=== PATIENT | male | born 1945 ===

== ENCOUNTER 2017-06-01 10:51 | Inpatient (IN) | payer OTHER ==
[~2017-06-01] VITALS: Ht 177.8 cm; Wt 117.9 kg
[~2017-06-01 10:51] MED LIST: AMLO10 PO; AMLO5; AMLO5 PO; ASPI81CH PO; ASPI81EC PO; ATOR40TA PO; B Complex #11 EACH PO; B Complex-Foli1 EACH; BLADDER MED; CLOP75 PO; CYAN500 PO; CYCL10 PO; DIAZ10 PO; DOCU100 PO; DOXA2 PO; GABA300; GABA300 PO; GLIP5 PO; GLYB5 PO; Hydrochloroth12.5 MG PO; INS70/30PN SC; LEVSOD150 PO; LOSA50 PO; LOVA40 PO; MAGOXI400; META800 PO; METF500 PO; METF850 PO; METFORMIN PO; METO100ER PO; METO25ER PO; METO50 PO; NAPR500 PO; NAPR500EC PO; Norco 5-325 Ta1 EACH PO; OMEP20ER PO; OXYACE5T PO; OXYACE7.5T PO; OXYB5 PO; OXYC15ER PO; Omeprazole20 M1 PO; PIOG15 PO; PIOG30 PO; POTA8; Percocet 7.5-31 EACH; Percocet 7.5-31 EACH PO; TAMS.4ER; TAMS.4ER PO; Vesicare10 MG; Vesicare10 MG PO
[2017-06-01 11:19] LABS: BASOPHILS ABSOLUTE AUTO 0.02 K/mm3 (0.00-0.23); BASOPHILS PERCENT AUTO 0 % (0-2); EOSINOPHILS PERCENT AUTO 7 % (0-6); Hematocrit 42.7 % (37.0-53.0); Hemoglobin 14.5 g/dL (13.5-17.5); IMMATURE GRAN ABSOLUTE AUTO 0.03 K/mm3 (0.00-0.10); IMMATURE GRAN PERCENT AUTO 0 % (0-1); LYMPHOCYTES ABSOLUTE AUTO 1.89 K/mm3 (0.84-5.20); LYMPHOCYTES PERCENT AUTO 21 % (21-46); MONOCYTES ABSOLUTE AUTO 0.59 K/mm3 (0.16-1.47); MONOCYTES PERCENT AUTO 7 % (4-13); Mean Corpuscular HGB 29.2 pg (26.0-34.0); Mean Corpuscular Volume 86 fL (80-100); Mean Platelet Volume 9.6 fL (9.1-12.4); NEUTROPHILS ABSOLUTE AUTO 5.87 K/mm3 (1.96-9.15); NEUTROPHILS PERCENT AUTO 65 % (41-73); Platelet Count 241 K/mm3 (150-400); RDW Coefficient Variation 13.1 % (11.7-14.2); Red Blood Cell Count 4.97 M/mm3 (4.30-5.90)
[2017-06-01] MEDS ORDERED: METF500C PO (11:22)
[2017-06-01 11:42] LABS: Albumin, Blood 2.5 g/dL (3.4-5.0); Albumin/Globulin Ratio 0.6 (0.8-1.8); Bilirubin, Total 0.4 mg/dL (0.1-1.0); Bun/Creatinine Ratio 22.5 (12.0-20.0); Calcium, Blood 9.1 mg/dL (8.5-10.1); Creatinine, Blood 1.42 mg/dL (0.60-1.20); Globulin, Blood 4.5 g/dL (2.2-4.0); Potassium, Blood 4.4 mmol/L (3.5-5.5)
[2017-06-01 11:45] LABS: International Normalized Ratio 0.97; Prothrombin Time Results 10.1 Sec (9.7-11.5)
[2017-06-01] MEDS ORDERED: GLIP5 PO (16:00)
[2017-06-01] MEDS ORDERED: METF850 PO (16:01)
[2017-06-01] MEDS ORDERED: GABA300 PO (16:02)
[2017-06-01] MEDS ORDERED: SOLI5 PO (16:03)
[2017-06-01] MEDS ORDERED: TAMS.4ER PO (16:03)
[2017-06-01] MEDS ORDERED: ASPI81CH PO (16:04)
[2017-06-01] MEDS ORDERED: B-COMPLEX WITH1 EAC1 PO (16:05)
[2017-06-01] MEDS ORDERED: MAGOXI400 PO (16:05)
[2017-06-01] MEDS ORDERED: Percocet 7.5-31 EACH PO (16:06)
[2017-06-02 09:07] LABS: Anion Gap 8 mmol/L (6-16); Blood Urea Nitrogen 30 mg/dL (8-24); Bun/Creatinine Ratio 26.8 (12.0-20.0); CO2, Blood 26 mmol/L (21-32); Chloride, Blood 104 mmol/L (98-108); Creatinine, Blood 1.12 mg/dL (0.60-1.20); Glomerular Filtration Rate >60 (60-); Glucose, Blood 212 mg/dL (70-99); Potassium, Blood 4.1 mmol/L (3.5-5.5); Sodium, Blood 138 mmol/L (136-145)
[2017-06-03 05:44] LABS: CHOL/HDL RATIO 3.7; Cholesterol 142 mg/dL (50-200); HDL Cholesterol 38 mg/dL (>39); LDL/HDL RATIO 1.5; Low Density Lipoprotein Chol 56 mg/dL (0-110); Triglycerides 241 mg/dL (30-160); Very Low Density Lipoprot Chol 48 mg/dL (6-32)
[2017-06-07 06:01] LABS: BASOPHILS ABSOLUTE AUTO 0.02 K/mm3 (0.00-0.23); BASOPHILS PERCENT AUTO 0 % (0-2); EOSINOPHILS ABSOLUTE AUTO 0.91 K/mm3 (0.00-0.68); EOSINOPHILS PERCENT AUTO 10 % (0-6); Hemoglobin 13.9 g/dL (13.5-17.5); IMMATURE GRAN ABSOLUTE AUTO 0.04 K/mm3 (0.00-0.10); IMMATURE GRAN PERCENT AUTO 0 % (0-1); LYMPHOCYTES PERCENT AUTO 20 % (21-46); MONOCYTES ABSOLUTE AUTO 0.81 K/mm3 (0.16-1.47); MONOCYTES PERCENT AUTO 9 % (4-13); Mean Corpuscular HGB 28.5 pg (26.0-34.0); Mean Corpuscular HGB Conc 32.3 g/dL (31.5-36.5); Mean Corpuscular Volume 88 fL (80-100); Mean Platelet Volume 9.9 fL (9.1-12.4); NEUTROPHILS ABSOLUTE AUTO 5.49 K/mm3 (1.96-9.15); NEUTROPHILS PERCENT AUTO 61 % (41-73); Platelet Count 213 K/mm3 (150-400); RDW Coefficient Variation 13.9 % (11.7-14.2); RDW Standard Deviation 44.4 fL (35.1-46.3); Red Blood Cell Count 4.88 M/mm3 (4.30-5.90); White Blood Cell Count 9.07 K/mm3 (4.00-11.30)
[2017-06-07 06:27] LABS: Bun/Creatinine Ratio 22.8 (12.0-20.0); Creatinine, Blood 1.27 mg/dL (0.60-1.20); Potassium, Blood 4.5 mmol/L (3.5-5.5)
[2017-06-07 14:11] LABS: Influenza A Negative (NEGATIVE); Influenza B Negative (NEGATIVE)
[2017-06-10 12:27] LABS: BASOPHILS ABSOLUTE AUTO 0.02 K/mm3 (0.00-0.23); BASOPHILS PERCENT AUTO 0 % (0-2); EOSINOPHILS ABSOLUTE AUTO 0.73 K/mm3 (0.00-0.68); EOSINOPHILS PERCENT AUTO 9 % (0-6); Hematocrit 45.7 % (37.0-53.0); Hemoglobin 14.7 g/dL (13.5-17.5); IMMATURE GRAN ABSOLUTE AUTO 0.02 K/mm3 (0.00-0.10); IMMATURE GRAN PERCENT AUTO 0 % (0-1); LYMPHOCYTES ABSOLUTE AUTO 1.46 K/mm3 (0.84-5.20); LYMPHOCYTES PERCENT AUTO 17 % (21-46); MONOCYTES ABSOLUTE AUTO 0.58 K/mm3 (0.16-1.47); MONOCYTES PERCENT AUTO 7 % (4-13); Mean Corpuscular HGB 28.7 pg (26.0-34.0); Mean Corpuscular HGB Conc 32.2 g/dL (31.5-36.5); Mean Corpuscular Volume 89 fL (80-100); Mean Platelet Volume 10.2 fL (9.1-12.4); NEUTROPHILS ABSOLUTE AUTO 5.78 K/mm3 (1.96-9.15); NEUTROPHILS PERCENT AUTO 67 % (41-73); Platelet Count 234 K/mm3 (150-400); RDW Coefficient Variation 13.7 % (11.7-14.2); RDW Standard Deviation 44.6 fL (35.1-46.3); Red Blood Cell Count 5.13 M/mm3 (4.30-5.90); White Blood Cell Count 8.59 K/mm3 (4.00-11.30)
[2017-06-10 12:47] LABS: Bun/Creatinine Ratio 20.6 (12.0-20.0); Calcium, Blood 9.1 mg/dL (8.5-10.1); Creatinine, Blood 1.26 mg/dL (0.60-1.20); Potassium, Blood 5.1 mmol/L (3.5-5.5)
[2017-06-11] MEDS ORDERED: BUME1 PO (18:51)
[2017-06-11] MEDS ORDERED: ALBU90OI6 INH (18:51)
[2017-06-11] MEDS ORDERED: DOCU100 PO (18:52)
[2017-06-11] MEDS ORDERED: LEVEMIR FL100 UNIT/1 SC (18:59)
[2017-06-11] MEDS ORDERED: INSU100I6 SC (19:03)
[2017-06-11] MEDS ORDERED: GAVILAX17 GM PO (19:04)
[2017-06-11] MEDS ORDERED: Milk Of Ma400 MG/5 M PO (19:05)
[2017-06-11] MEDS ORDERED: TROSPIUM CHLORI20 MG PO (19:06)
[2017-06-11] MEDS ORDERED: Aspercreme 1035.4 GM TOP (19:07)
[2018-03-21] MEDS ORDERED: FURO40 PO (08:41)
[2018-03-21] MEDS ORDERED: METF500C PO (08:41)
[2018-03-21] MEDS ORDERED: CLOP75 PO (08:41)
[2018-03-21] MEDS ORDERED: METO25 (08:42)
[2018-03-21] MEDS ORDERED: POTA8 PO (08:42)
[2018-03-21] MEDS ORDERED: NYST237S MT (10:20)
[2018-03-21] MEDS ORDERED: Veetids 500500 MG PO (10:20)
== END 2017-06-11 17:06 | DRG 64 ==
LOC: ER 10:51 → MEDS 10:52 → ENPENDDIS 06-11 14:32 → MEDS 06-11 17:06
PROVIDERS: Emergency Medicine; Internal Medicine
PROC: 3E0234Z Introduction of Serum, Toxoid and Vaccine into Muscle, Percutaneous Approach (ICD-10-PCS; principal; 2017-06-01)
DX: I63.9 Cerebral infarction, unspecified (principal); J18.9 Pneumonia, unspecified organism; E11.9 Type 2 diabetes mellitus without complications; I35.0 Nonrheumatic aortic (valve) stenosis; G81.94 Hemiplegia, unspecified affecting left nondominant side; I10 Essential (primary) hypertension; N40.0 Benign prostatic hyperplasia without lower urinary tract symptoms; Z23 Encounter for immunization; R29.701 NIHSS score 1; Z99.3 Dependence on wheelchair; E78.5 Hyperlipidemia, unspecified; K21.9 Gastro-esophageal reflux disease without esophagitis; I25.10 Atherosclerotic heart disease of native coronary artery without angina pectoris; Z95.1 Presence of aortocoronary bypass graft; K59.00 Constipation, unspecified; E66.9 Obesity, unspecified; Z68.38 Body mass index [BMI] 38.0-38.9, adult
CPT/HCPCS: 36415; 70450; 70496; 70498; 71046; 80048; 80053; 80061; 82947; 83036; 85025; 85610; 87804; 93005; 93010; 94640; 94760; 97110; 97112; 97163; 97166; 97530; 99285; G8978; G8979; G8987; G8988; J0360; J1650; J1815; J1956; Q9967

== ENCOUNTER → 2017-10-08 | Outpatient (CLI) | payer OTHER ==
[~2017-10-08] MED LIST changes: +ALBU90OI6 INH; +Aspercreme 1035.4 GM TOP; +B-COMPLEX WITH1 EAC1 PO; +BUME1 PO; +GAVILAX17 GM PO; +INSU100I6 SC; +LEVEMIR FL100 UNIT/1 SC; +MAGOXI400 PO; +METF500C PO; +Milk Of Ma400 MG/5 M PO; +SOLI5 PO; +TROSPIUM CHLORI20 MG PO
[2017-10-08 12:38] LABS: Protein, Urine Quantitative 240.9 mg/dL (0.0-11.9)
== END ==
LOC: LAB FUT 09-25 10:30 → LAB SHORT 10:45 → OLS 10:45
PROVIDERS: Internal Medicine Nephrology
DX: N18.2 Chronic kidney disease, stage 2 (mild) (principal); D63.1 Anemia in chronic kidney disease
CPT/HCPCS: 81050; 82043; 84156

== ENCOUNTER 2017-10-09 11:54 | Day surgery (SDC) | payer OTHER | END 2017-10-09 22:41 | disposition home or self-care (01) | LOC: WOUND 11:54 | DX: Z48.00 Encounter for change or removal of nonsurgical wound dressing (principal); E11.622 Type 2 diabetes mellitus with other skin ulcer; L97.829 Non-pressure chronic ulcer of other part of left lower leg with unspecified severity; S51.802A Unspecified open wound of left forearm, initial encounter; I20.9 Angina pectoris, unspecified; E11.40 Type 2 diabetes mellitus with diabetic neuropathy, unspecified; I69.959 Hemiplegia and hemiparesis following unspecified cerebrovascular disease affecting unspecified side; I25.10 Atherosclerotic heart disease of native coronary artery without angina pectoris; R60.9 Edema, unspecified; I10 Essential (primary) hypertension; J44.9 Chronic obstructive pulmonary disease, unspecified; I87.2 Venous insufficiency (chronic) (peripheral) | CPT/HCPCS: G0463 ==

== ENCOUNTER 2017-10-11 08:00 | Day surgery (SDC) | payer OTHER | END 2017-10-11 13:55 | disposition home or self-care (01) | LOC: WOUND 08:00 | PROC: 2W1RX6Z Compression of Left Lower Leg using Pressure Dressing (ICD-10-PCS; principal; 2017-10-11) | DX: S81.802A Unspecified open wound, left lower leg, initial encounter (principal); I20.9 Angina pectoris, unspecified; R06.02 Shortness of breath; E11.40 Type 2 diabetes mellitus with diabetic neuropathy, unspecified; I69.959 Hemiplegia and hemiparesis following unspecified cerebrovascular disease affecting unspecified side; I25.10 Atherosclerotic heart disease of native coronary artery without angina pectoris; R60.9 Edema, unspecified; I10 Essential (primary) hypertension; J44.9 Chronic obstructive pulmonary disease, unspecified; Z79.4 Long term (current) use of insulin; Z79.02 Long term (current) use of antithrombotics/antiplatelets; E78.5 Hyperlipidemia, unspecified ==

== ENCOUNTER 2017-10-15 08:00 | Day surgery (SDC) | payer OTHER | END 2017-10-15 11:22 | disposition home or self-care (01) | LOC: WOUND 08:00 | PROC: 2W1RX6Z Compression of Left Lower Leg using Pressure Dressing (ICD-10-PCS; principal; 2017-10-15) | DX: S81.802A Unspecified open wound, left lower leg, initial encounter (principal); R06.02 Shortness of breath; E11.40 Type 2 diabetes mellitus with diabetic neuropathy, unspecified; I69.959 Hemiplegia and hemiparesis following unspecified cerebrovascular disease affecting unspecified side; R60.9 Edema, unspecified; I10 Essential (primary) hypertension; J44.9 Chronic obstructive pulmonary disease, unspecified; I87.2 Venous insufficiency (chronic) (peripheral); Z79.4 Long term (current) use of insulin; Z79.02 Long term (current) use of antithrombotics/antiplatelets; G47.30 Sleep apnea, unspecified; E66.01 Morbid (severe) obesity due to excess calories ==

== ENCOUNTER 2017-10-18 09:15 | Day surgery (SDC) | payer OTHER ==
[2017-10-18] MEDS ORDERED: B Complex #11 EACH PO (10:46)
[2017-10-18] MEDS ORDERED: INSULANPEN SC (10:49)
[2017-10-18] MEDS ORDERED: GABA300 PO (11:29)
== END 2017-10-18 10:37 | disposition home or self-care (01) ==
LOC: WOUND 09:15
DX: Z48.00 Encounter for change or removal of nonsurgical wound dressing (principal); S81.802A Unspecified open wound, left lower leg, initial encounter; I20.9 Angina pectoris, unspecified; E11.40 Type 2 diabetes mellitus with diabetic neuropathy, unspecified; I69.959 Hemiplegia and hemiparesis following unspecified cerebrovascular disease affecting unspecified side; I25.10 Atherosclerotic heart disease of native coronary artery without angina pectoris
CPT/HCPCS: G0463

== ENCOUNTER 2017-10-18 10:52 | Day surgery (SDC) | payer OTHER ==
[~2017-10-18] VITALS: Ht 177.8 cm; Wt 127.0 kg
[~2017-10-18 10:52] MED LIST changes: +INSULANPEN SC
[2017-10-18] MEDS ORDERED: GABA300 PO (11:29)
== END 2017-10-18 23:04 | disposition home or self-care (01) ==
LOC: MHTC 10:52
DX: I35.0 Nonrheumatic aortic (valve) stenosis (principal)
CPT/HCPCS: 93312; 93325; 99152; J2250; J3010; J7040

== ENCOUNTER 2018-11-29 13:43 | Observation (INO) | payer OTHER ==
[~2018-11-29] VITALS: Ht 177.8 cm; Wt 133.2 kg
[~2018-11-29 13:43] MED LIST changes: +FURO40 PO; +METO25; +NYST237S MT; +POTA8 PO; +Veetids 500500 MG PO
[2018-11-29 14:24] LABS: BASOPHILS ABSOLUTE AUTO 0.04 K/mm3 (0.00-0.23); BASOPHILS PERCENT AUTO 1 % (0-2); EOSINOPHILS ABSOLUTE AUTO 0.91 K/mm3 (0.00-0.68); EOSINOPHILS PERCENT AUTO 11 % (0-6); Hematocrit 41.4 % (37.0-53.0); Hemoglobin 13.3 g/dL (13.5-17.5); IMMATURE GRAN ABSOLUTE AUTO 0.07 K/mm3 (0.00-0.10); IMMATURE GRAN PERCENT AUTO 1 % (0-1); LYMPHOCYTES ABSOLUTE AUTO 0.94 K/mm3 (0.84-5.20); LYMPHOCYTES PERCENT AUTO 11 % (21-46); MONOCYTES ABSOLUTE AUTO 1.01 K/mm3 (0.16-1.47); MONOCYTES PERCENT AUTO 12 % (4-13); Mean Corpuscular HGB 28.3 pg (26.0-34.0); Mean Corpuscular HGB Conc 32.1 g/dL (31.5-36.5); Mean Corpuscular Volume 88 fL (80-100); Mean Platelet Volume 10.3 fL (9.1-12.4); NEUTROPHILS ABSOLUTE AUTO 5.66 K/mm3 (1.96-9.15); NEUTROPHILS PERCENT AUTO 66 % (41-73); Platelet Count 208 K/mm3 (150-400); RDW Coefficient Variation 13.7 % (11.7-14.2); RDW Standard Deviation 44.5 fL (35.1-46.3); White Blood Cell Count 8.63 K/mm3 (4.00-11.30)
[2018-11-29 14:46] LABS: International Normalized Ratio 0.97; Prothrombin Time Results 10.3 Sec (9.7-11.5)
[2018-11-29 14:48] LABS: Albumin, Blood 2.9 g/dL (3.4-5.0); Albumin/Globulin Ratio 0.8 (0.8-1.8); Bilirubin, Total 0.6 mg/dL (0.1-1.0); Bun/Creatinine Ratio 16.6 (12.0-20.0); Creatinine, Blood 1.51 mg/dL (0.60-1.20); Globulin, Blood 3.6 g/dL (2.2-4.0); Total Protein, Blood 6.5 g/dL (6.4-8.2)
[2018-11-29] MEDS ORDERED: PANT20 PO (16:01)
[2018-11-29] MEDS ORDERED: ATOR80 PO (16:03)
--- NOTE | 2018-11-29 18:07 | NUR ---
PT ADMITTED/SHIFT SUMMARY PT ADMITTED AT 1745. PT IN STABLE CONDITION WITH VSS. PT & ORIENTED TO ROOM. CALL LIGHT IN REACH. PT EATING DINNER AT THIS TIME. WILL CONTINUE TO MONITOR UNTIL TURNOVER IS COMPLETE.
--- NOTE | 2018-11-30 05:34 | NUR ---
SHIFT SUMMARY PT SLEPT WELL DURING THE NIGHT, OFFERS NO C/O'S THIS AM. NO ACUTE EVENTS NOTED OVER NIGHT. LEFT SIDE REMAINS WEAKER THAN THE RIGHT, PT STILL WITH SLURRED SPEECH. ALTHOUGH HE HAS NO DENTURES IN, FAMILY BRINGING IN TODAY. NEUROS REMAIN UNCHANGED, WILL CONTINUE TO MONITOR.
[2018-11-30 05:35] LABS: BASOPHILS ABSOLUTE AUTO 0.03 K/mm3 (0.00-0.23); BASOPHILS PERCENT AUTO 0 % (0-2); EOSINOPHILS ABSOLUTE AUTO 0.79 K/mm3 (0.00-0.68); EOSINOPHILS PERCENT AUTO 12 % (0-6); Hematocrit 38.8 % (37.0-53.0); Hemoglobin 12.4 g/dL (13.5-17.5); IMMATURE GRAN ABSOLUTE AUTO 0.05 K/mm3 (0.00-0.10); IMMATURE GRAN PERCENT AUTO 1 % (0-1); LYMPHOCYTES ABSOLUTE AUTO 0.87 K/mm3 (0.84-5.20); LYMPHOCYTES PERCENT AUTO 13 % (21-46); MONOCYTES ABSOLUTE AUTO 0.95 K/mm3 (0.16-1.47); MONOCYTES PERCENT AUTO 14 % (4-13); Mean Corpuscular HGB 27.8 pg (26.0-34.0); Mean Corpuscular Volume 87 fL (80-100); Mean Platelet Volume 10.4 fL (9.1-12.4); NEUTROPHILS PERCENT AUTO 61 % (41-73); Platelet Count 183 K/mm3 (150-400); RDW Coefficient Variation 13.8 % (11.7-14.2); RDW Standard Deviation 43.9 fL (35.1-46.3); Red Blood Cell Count 4.46 M/mm3 (4.30-5.90); White Blood Cell Count 6.89 K/mm3 (4.00-11.30)
[2018-11-30 06:06] LABS: Bun/Creatinine Ratio 17.1 (12.0-20.0); Calcium, Blood 8.8 mg/dL (8.5-10.1); Creatinine, Blood 1.52 mg/dL (0.60-1.20); Potassium, Blood 4.2 mmol/L (3.5-5.5)
--- NOTE | 2018-12-01 05:09 | NUR ---
SHIFT SUMMARY PT SLEPT WELL DURING THE NIGHT, INCONTINENT OF A LARGE AMOUNT OF URINE. PT WANTING TO SIT UP IN CHAIR THIS AM, BUT IS TOO WEAK TO EVEN HOLD SELF UP IN A SITTING POSITION. PT REPOSITIONED IN BED. TYLENOL GIVEN FOR A H/A THIS AM. B/P ALSO ELEVATED THIS AM. WILL CONTINUE TO MONITOR.
[2018-12-01 05:11] LABS: BASOPHILS ABSOLUTE AUTO 0.03 K/mm3 (0.00-0.23); BASOPHILS PERCENT AUTO 0 % (0-2); EOSINOPHILS ABSOLUTE AUTO 0.56 K/mm3 (0.00-0.68); EOSINOPHILS PERCENT AUTO 8 % (0-6); Hematocrit 41.2 % (37.0-53.0); Hemoglobin 13.2 g/dL (13.5-17.5); IMMATURE GRAN ABSOLUTE AUTO 0.07 K/mm3 (0.00-0.10); IMMATURE GRAN PERCENT AUTO 1 % (0-1); LYMPHOCYTES ABSOLUTE AUTO 0.85 K/mm3 (0.84-5.20); LYMPHOCYTES PERCENT AUTO 12 % (21-46); MONOCYTES ABSOLUTE AUTO 0.92 K/mm3 (0.16-1.47); MONOCYTES PERCENT AUTO 13 % (4-13); Mean Corpuscular HGB 28.3 pg (26.0-34.0); Mean Corpuscular Volume 88 fL (80-100); Mean Platelet Volume 10.1 fL (9.1-12.4); NEUTROPHILS ABSOLUTE AUTO 4.58 K/mm3 (1.96-9.15); NEUTROPHILS PERCENT AUTO 65 % (41-73); Platelet Count 179 K/mm3 (150-400); RDW Coefficient Variation 13.6 % (11.7-14.2); RDW Standard Deviation 44.2 fL (35.1-46.3); Red Blood Cell Count 4.66 M/mm3 (4.30-5.90); White Blood Cell Count 7.01 K/mm3 (4.00-11.30)
[2018-12-01 05:41] LABS: Albumin, Blood 2.7 g/dL (3.4-5.0); Anion Gap 6 mmol/L (6-16); Blood Urea Nitrogen 24 mg/dL (8-24); Bun/Creatinine Ratio 16.3 (12.0-20.0); CO2, Blood 26 mmol/L (21-32); Chloride, Blood 106 mmol/L (98-108); Creatinine, Blood 1.47 mg/dL (0.60-1.20); Glomerular Filtration Rate 50 (60-); Glucose, Blood 210 mg/dL (70-99); Phosphorus, Blood 3.9 mg/dL (2.5-4.9); Potassium, Blood 4.4 mmol/L (3.5-5.5); Sodium, Blood 138 mmol/L (136-145)
--- NOTE | 2018-12-01 18:27 | NUR ---
PATIENT NOT FEELING WELL THIS SHIFT. MUCH WEAKER WITH TRANSFERS, HAD TO USE A LIFT AT ONE POINT TO GET BACK TO BED. PATIENT REPORTING SOB AND PRODUCTIVE COUGH. CHEST X-RAY ORDERED AND WAS NEGATIVE. RT TX ORDERED AND SOB AND WHEEZING IMPROVED. 2LO2 TO MAINTAIN SATS. 20G IV TO R AC WNL AND SL. PATIENT SLOW TO RESPOND AND HAS SOME INTERMITTENT CONFUSION. L SIDE REMAINS WEAK. ACHS BLOOD SUGARS, COVERAGE PER SS. CONT/INCONT, REQUIRES ASSIST WITH URINAL. OXYCODNE AND TYLENOL ORDERED FOR PAIN. PATIENT TOLERATING ADA DIET, REPORTS DECREASED APPETITE TODAY.
--- NOTE | 2018-12-02 05:36 | NUR ---
SHIFT SUMMARY PT UP TO BSC WITH HARD ASSSIST OF 2, HAD SMALL BM. SLEPT FAIR. MEDICATED X1 FOR BACK PAIN. PT LEFT SIDE SEEMS TO BE WEAKER. PT CHANGED X1 OF INCONTINENT URINE AND ANOTHER SMALL STOOL. WILL CONTINUE TO MONITOR.
--- NOTE | 2018-12-02 17:43 | NUR ---
SUMMARY: NO ACUTE CHANGE TODAY. PT IS A/O, VSS, NO NEW WEAKNESS. CONTINUES TO REPORT L SIDE WEAK. PT WORKED WITH PT TODAY, SAT IN CHAIR IN THE AFTERNOON. CONTINUES TO NEED 2L NC, PRODUCTIVE COUGH. SOME SOB ON EXERTION, ENCOURAGING COUGH AND DEEP BREATHE. PLAN IS TO DC TO A SNF BED WHEN AVALIBLE. NO SAFETY CONCERNS AT THIS TIME.
--- NOTE | 2018-12-03 05:06 | NUR ---
SHIFT SUMMARY PT SLEPT WELL DURING THE NIGHT, OFFERS NO C/O'S. NO ACUTE EVENTS OR CHANGES NOTED.
[2018-12-03] MEDS ORDERED: DOXY100 PO (11:23)
[2018-12-03] MEDS ORDERED: PRED20 PO (11:24)
[2018-12-03] MEDS ORDERED: FLUTICASONE-SA1 EAC2 INH (11:24)
[2018-12-03] MEDS ORDERED: METO25ER PO (11:24)
--- NOTE | 2018-12-03 13:12 | NUR ---
PT. TRANSFERRED TO [facility] VIA [facility] TRANSPORT AND WC WITH OXYGEN, TRIED TO CALL REPORT BUT THE NURSE DID NOT COME TO THE PHONE, TEXTILE BROKER TOOK MY NAME AND PHONE NUMBER TO CALL ME FOR REPORT. I WAS ON HOLD FOR 10-15 MINUTES.
== END 2018-12-03 13:13 ==
LOC: ER 13:43 → ERHOLD 16:03 → ER 16:03 → ERHOLD 16:03 → MEDS 16:03 → ERHOLD 17:51 → MEDS 17:51
PROVIDERS: Emergency Medicine; Internal Medicine; Nurse Practitioner Acute Care; ADMIT Internal Medicine
DX: I63.9 Cerebral infarction, unspecified (principal); R53.1 Weakness; J96.01 Acute respiratory failure with hypoxia; J20.9 Acute bronchitis, unspecified; I12.9 Hypertensive chronic kidney disease with stage 1 through stage 4 chronic kidney disease, or unspecified chronic kidney disease; E11.22 Type 2 diabetes mellitus with diabetic chronic kidney disease; N18.3 Chronic kidney disease, stage 3 (moderate); M17.0 Bilateral primary osteoarthritis of knee; I25.10 Atherosclerotic heart disease of native coronary artery without angina pectoris; K21.0 Gastro-esophageal reflux disease with esophagitis; N40.0 Benign prostatic hyperplasia without lower urinary tract symptoms; E78.5 Hyperlipidemia, unspecified; G47.33 Obstructive sleep apnea (adult) (pediatric); E66.01 Morbid (severe) obesity due to excess calories; Z86.73 Personal history of transient ischemic attack (TIA), and cerebral infarction without residual deficits; Z79.899 Other long term (current) drug therapy; Z79.82 Long term (current) use of aspirin; Z79.01 Long term (current) use of anticoagulants; Z79.4 Long term (current) use of insulin; Z88.8 Allergy status to other drugs, medicaments and biological substances; Z87.891 Personal history of nicotine dependence
CPT/HCPCS: 36415; 70450; 70496; 70498; 71045; 80048; 80053; 80069; 82947; 83880; 85025; 85610; 92610; 93005; 93010; 93306; 93971; 94640; 94760; 96372; 97110; 97162; 97166; 97530; 97535; 99285-25; A9270; A9270-GY; G0378; J1650; J7030; J7512; Q9967

== ENCOUNTER → 2019-06-11 | Outpatient (CLI) | payer OTHER ==
[~2019-06-11] MED LIST changes: +ATOR80 PO; +DOXY100 PO; +FLUTICASONE-SA1 EAC2 INH; +PANT20 PO; +PRED20 PO
[2019-06-16 13:07] LABS: M-SPIKE, % Not Observed % (Not Observed); PROTEIN,TOTAL,URINE 687.3 mg/dL (Not Estab.)
== END | disposition home or self-care (01) ==
LOC: LAB 07:00 → LAB SHORT 07:00 → LAB FUT 06-05 11:25
PROVIDERS: Internal Medicine
DX: Z00.01 Encounter for general adult medical examination with abnormal findings (principal)
CPT/HCPCS: 81050; 84156; 84166

== ENCOUNTER 2020-04-29 10:13 | Day surgery (SDC) | payer OTHER ==
[~2020-04-29] VITALS: Ht 177.8 cm; Wt 135.5 kg
[~2020-04-29 10:13] MED LIST changes: +B-121000 MC7; +BASAGLAR K100 UNIT/1 SC; +CARV3.125; +FLUT1DIS5; +MAGNESIUM OXID500 MG; +METF500; +PANT20; +TELM80; +Toviaz4 MG; +VITAMIN D31000 UNI1
--- NOTE | 2020-04-29 16:39 | NUR ---
FOLLOWED PT BACK TO RECOVERY ROOM FROM PROCEDURE. R GROIN SITE STABLE
--- NOTE | 2020-04-29 18:09 | NUR ---
BP ELEVATED DURING PROCEDURE AND GIVEN A TOTAL OF 20 MG IV LABETOLOL. BP STILL ELEVATED HERE IN RECOVERY ROOM. DR NOTIFIED AND ORDERS RECIEVED TO GIVE HOME DOSE OF PO MEDICATION, GIVEN.
--- NOTE | 2020-04-29 19:21 | NUR ---
PT UP AND BACK FROM BATHROOM. DRESSED WITH ASSISTANCE. GROIN SITE STABLE. SALINE LOCK REMOVED WITH CATHETER INTACT. DISCHARGE INSTRUCTIONS REVIEWED WITH PT, VERBALIZES UNDERSTANDING. PT STATES WILL REVIEW INSTRUCTIONS UPON HIS ARRIVAL HOME. PT TO PRIVATE VEHICLE PER W/C WITH ONE STAFF.
== END 2020-04-29 23:30 | disposition home or self-care (01) ==
LOC: MHTC 10:13
DX: E11.621 Type 2 diabetes mellitus with foot ulcer (principal); I70.245 Atherosclerosis of native arteries of left leg with ulceration of other part of foot; I70.211 Atherosclerosis of native arteries of extremities with intermittent claudication, right leg; L97.529 Non-pressure chronic ulcer of other part of left foot with unspecified severity; E11.51 Type 2 diabetes mellitus with diabetic peripheral angiopathy without gangrene; I10 Essential (primary) hypertension; E78.5 Hyperlipidemia, unspecified; Z87.891 Personal history of nicotine dependence; Z79.4 Long term (current) use of insulin; G47.33 Obstructive sleep apnea (adult) (pediatric); Z79.82 Long term (current) use of aspirin; Z79.02 Long term (current) use of antithrombotics/antiplatelets; Z79.899 Other long term (current) drug therapy; M17.10 Unilateral primary osteoarthritis, unspecified knee
CPT/HCPCS: 37228; 37232; 75625; 75716; 75774; 85347; 99152; 99153; C1725; C1760; C1769; C1887; C1894; J1644; J2250; J3010; J7030; J7040; J7050; Q9967

== ENCOUNTER 2020-07-02 00:55 | Emergency (ER) | payer OTHER ==
[~2020-07-02] VITALS: Ht 177.8 cm; Wt 136.1 kg
[~2020-07-02 00:55] MED LIST changes: -ATOR80 PO; -BASAGLAR K100 UNIT/1 SC; -CARV3.125; -FLUT1DIS5; -TELM80; -Toviaz4 MG
[2020-07-02 01:20] LABS: BASOPHILS ABSOLUTE AUTO 0.04 K/mm3 (0.00-0.23); BASOPHILS PERCENT AUTO 1 % (0-2); EOSINOPHILS ABSOLUTE AUTO 0.01 K/mm3 (0.00-0.68); EOSINOPHILS PERCENT AUTO 0 % (0-6); Hematocrit 38.2 % (37.0-53.0); Hemoglobin 11.8 g/dL (13.5-17.5); IMMATURE GRAN ABSOLUTE AUTO 0.03 K/mm3 (0.00-0.10); IMMATURE GRAN PERCENT AUTO 0 % (0-1); LYMPHOCYTES ABSOLUTE AUTO 1.33 K/mm3 (0.84-5.20); LYMPHOCYTES PERCENT AUTO 16 % (21-46); MONOCYTES ABSOLUTE AUTO 0.89 K/mm3 (0.16-1.47); MONOCYTES PERCENT AUTO 11 % (4-13); Mean Corpuscular HGB 26.6 pg (26.0-34.0); Mean Corpuscular HGB Conc 30.9 g/dL (31.5-36.5); Mean Corpuscular Volume 86 fL (80-100); Mean Platelet Volume 10.1 fL (9.1-12.4); NEUTROPHILS ABSOLUTE AUTO 6.17 K/mm3 (1.96-9.15); NEUTROPHILS PERCENT AUTO 73 % (41-73); Platelet Count 212 K/mm3 (150-400); RDW Standard Deviation 43.6 fL (35.1-46.3); Red Blood Cell Count 4.44 M/mm3 (4.30-5.90); White Blood Cell Count 8.47 K/mm3 (4.00-11.30)
[2020-07-02 01:39] LABS: Albumin, Blood 2.5 g/dL (3.4-5.0); Albumin/Globulin Ratio 0.7 (0.8-1.8); Bilirubin, Total 0.2 mg/dL (0.1-1.0); Bun/Creatinine Ratio 19.8 (12.0-20.0); Calcium, Blood 8.7 mg/dL (8.5-10.1); Creatinine, Blood 1.67 mg/dL (0.60-1.20); Globulin, Blood 3.8 g/dL (2.2-4.0); Potassium, Blood 4.3 mmol/L (3.5-5.5); Total Protein, Blood 6.3 g/dL (6.4-8.2)
[2020-07-02 03:14] LABS: Source, Urine Clean Catch
[2020-07-02 03:16] LABS: Bilirubin, Urine Neg (Neg); Blood, Urine 2+ (Neg); Glucose Qualitative, Urine 3+ (Neg); Ketones, Urine Neg (Neg); Leukocyte Esterase, Urine Neg (Neg); Nitrite, Urine Neg (Neg); Protein, Urine 4+ (Neg); Specific Gravity, Urine 1.015 (1.003-1.022); Urobilinogen, Urine NORM (Normal)
[2020-07-02 03:18] LABS: Appearance, Urine Clear (Clear); Color, Urine Yellow (P-Yellow)
[2020-07-02 03:31] LABS: Amorphous Light (0-Heavy); Bacteria Few /hpf; Mucus Light (0-Heavy); Red Blood Cells, Urine 0-2 /hpf (0-2); Squamous Epithelial Cells Few /hpf (Few); White Blood Cells, Urine Not Seen /hpf (0-5)
== END 2020-07-02 04:44 | disposition home or self-care (01) ==
LOC: ER 00:55
PROVIDERS: Emergency Medicine
DX: R10.9 Unspecified abdominal pain (principal); E11.9 Type 2 diabetes mellitus without complications; I25.2 Old myocardial infarction; Z79.82 Long term (current) use of aspirin; Z79.4 Long term (current) use of insulin; Z79.899 Other long term (current) drug therapy; Z88.8 Allergy status to other drugs, medicaments and biological substances; Z79.02 Long term (current) use of antithrombotics/antiplatelets; Z95.1 Presence of aortocoronary bypass graft; Z87.891 Personal history of nicotine dependence
CPT/HCPCS: 36415; 74176; 80053; 81001; 85025; 99285-25

== ENCOUNTER 2020-09-29 12:01 | Emergency (ER) | payer OTHER ==
[~2020-09-29] VITALS: Ht 172.7 cm; Wt 136.1 kg
[2020-09-29 14:32] LABS: BASOPHILS ABSOLUTE AUTO 0.05 K/mm3 (0.00-0.23); BASOPHILS PERCENT AUTO 1 % (0-2); EOSINOPHILS PERCENT AUTO 0 % (0-6); Hematocrit 38.4 % (37.0-53.0); Hemoglobin 11.7 g/dL (13.5-17.5); IMMATURE GRAN ABSOLUTE AUTO 0.02 K/mm3 (0.00-0.10); IMMATURE GRAN PERCENT AUTO 0 % (0-1); LYMPHOCYTES PERCENT AUTO 15 % (21-46); MONOCYTES PERCENT AUTO 8 % (4-13); Mean Corpuscular HGB 27.4 pg (26.0-34.0); Mean Corpuscular HGB Conc 30.5 g/dL (31.5-36.5); Mean Corpuscular Volume 90 fL (80-100); Mean Platelet Volume 10.3 fL (9.1-12.4); NEUTROPHILS ABSOLUTE AUTO 6.36 K/mm3 (1.96-9.15); NEUTROPHILS PERCENT AUTO 76 % (41-73); Platelet Count 206 K/mm3 (150-400); RDW Coefficient Variation 16.3 % (11.7-14.2); RDW Standard Deviation 52.9 fL (35.1-46.3); Red Blood Cell Count 4.27 M/mm3 (4.30-5.90); White Blood Cell Count 8.43 K/mm3 (4.00-11.30)
[2020-09-29 16:32] LABS: Albumin, Blood 2.9 g/dL (3.4-5.0); Albumin/Globulin Ratio 0.7 (0.8-1.8); Bilirubin, Total 0.2 mg/dL (0.1-1.0); Bun/Creatinine Ratio 19.6 (12.0-20.0); Calcium, Blood 10.3 mg/dL (8.5-10.1); Creatinine, Blood 1.84 mg/dL (0.60-1.20); Globulin, Blood 4.2 g/dL (2.2-4.0); Potassium, Blood 5.6 mmol/L (3.5-5.5); Total Protein, Blood 7.1 g/dL (6.4-8.2); Troponin I 0.034 ng/mL (0.000-0.040)
[2020-09-29] MEDS ORDERED: GABA300 PO (17:15)
[2020-09-29] MEDS ORDERED: TAMS.4ER PO (17:15)
[2020-09-29] MEDS ORDERED: Toviaz4 MG PO (17:16)
[2020-09-29] MEDS ORDERED: GLIP5 PO (17:16)
[2020-09-29] MEDS ORDERED: METO2.5 PO (17:17)
[2020-09-29] MEDS ORDERED: TELM80 PO (17:18)
[2020-09-29] MEDS ORDERED: FLUT1DIS5 INH (17:18)
[2020-09-29] MEDS ORDERED: BASAGLAR K100 UNIT/1 SC (17:19)
[2020-09-29] MEDS ORDERED: CLOP75 PO (17:19)
[2020-09-29] MEDS ORDERED: ATOR80 PO (17:20)
[2020-09-29] MEDS ORDERED: CARV6.25 PO (17:20)
[2020-09-29] MEDS ORDERED: Aspir 8181 MG PO (17:21)
[2020-09-29] MEDS ORDERED: CEPH500 PO (18:29)
== END 2020-09-29 18:59 | disposition other institution (70) ==
LOC: ER 12:01
PROVIDERS: Physician Assistant
DX: I10 Essential (primary) hypertension (principal); M79.605 Pain in left leg; Z88.8 Allergy status to other drugs, medicaments and biological substances; Z79.4 Long term (current) use of insulin; Z79.02 Long term (current) use of antithrombotics/antiplatelets; Z79.899 Other long term (current) drug therapy
CPT/HCPCS: 36415; 71045; 80053; 83880; 84484; 85025; 93005; 93010; 93971; 96374; 99284-25; A9270; J1940

== ENCOUNTER 2020-10-04 00:14 | Day surgery (SDC) | payer OTHER ==
[~2020-10-04 00:14] MED LIST changes: +ATOR80 PO; +Aspir 8181 MG PO; +BASAGLAR K100 UNIT/1 SC; +CARV6.25 PO; +CEPH500 PO; +FLUT1DIS5 INH; +METO2.5 PO; +TELM80 PO; +Toviaz4 MG PO
== END 2020-10-04 23:11 | disposition home or self-care (01) ==
LOC: WOUND 00:14
DX: E11.622 Type 2 diabetes mellitus with other skin ulcer (principal); L97.822 Non-pressure chronic ulcer of other part of left lower leg with fat layer exposed; I87.2 Venous insufficiency (chronic) (peripheral); E11.59 Type 2 diabetes mellitus with other circulatory complications; E11.40 Type 2 diabetes mellitus with diabetic neuropathy, unspecified; R60.9 Edema, unspecified
CPT/HCPCS: A9270; G0463

== ENCOUNTER 2020-10-11 00:15 | Day surgery (SDC) | payer OTHER | END 2020-10-11 22:56 | disposition home or self-care (01) | LOC: WOUND 00:15 | DX: E11.622 Type 2 diabetes mellitus with other skin ulcer (principal); L97.822 Non-pressure chronic ulcer of other part of left lower leg with fat layer exposed; I87.2 Venous insufficiency (chronic) (peripheral); E11.59 Type 2 diabetes mellitus with other circulatory complications; E11.40 Type 2 diabetes mellitus with diabetic neuropathy, unspecified; R60.9 Edema, unspecified | CPT/HCPCS: A9270 ==

== ENCOUNTER 2020-10-18 00:20 | Day surgery (SDC) | payer OTHER | END 2020-10-18 23:02 | disposition home or self-care (01) | LOC: WOUND 00:20 | DX: E11.622 Type 2 diabetes mellitus with other skin ulcer (principal); L97.822 Non-pressure chronic ulcer of other part of left lower leg with fat layer exposed; E11.621 Type 2 diabetes mellitus with foot ulcer; L97.522 Non-pressure chronic ulcer of other part of left foot with fat layer exposed; E11.59 Type 2 diabetes mellitus with other circulatory complications; I87.2 Venous insufficiency (chronic) (peripheral); E11.40 Type 2 diabetes mellitus with diabetic neuropathy, unspecified; R60.9 Edema, unspecified; E66.9 Obesity, unspecified; I10 Essential (primary) hypertension; Z79.4 Long term (current) use of insulin; Z86.73 Personal history of transient ischemic attack (TIA), and cerebral infarction without residual deficits; Z68.41 Body mass index [BMI] 40.0-44.9, adult | CPT/HCPCS: A9270; G0463 ==

== ENCOUNTER 2020-11-01 00:43 | Day surgery (SDC) | payer OTHER | END 2020-11-01 23:02 | disposition home or self-care (01) | LOC: WOUND 00:43 | DX: E11.622 Type 2 diabetes mellitus with other skin ulcer (principal); L97.822 Non-pressure chronic ulcer of other part of left lower leg with fat layer exposed; E11.621 Type 2 diabetes mellitus with foot ulcer; L97.529 Non-pressure chronic ulcer of other part of left foot with unspecified severity; I87.2 Venous insufficiency (chronic) (peripheral); E11.59 Type 2 diabetes mellitus with other circulatory complications; E11.40 Type 2 diabetes mellitus with diabetic neuropathy, unspecified; R60.9 Edema, unspecified | CPT/HCPCS: A9270 ==

== ENCOUNTER 2020-11-03 02:36 | Day surgery (SDC) | payer OTHER | END 2020-11-03 23:53 | disposition home or self-care (01) | LOC: WOUND 02:36 | DX: E11.622 Type 2 diabetes mellitus with other skin ulcer (principal); L97.822 Non-pressure chronic ulcer of other part of left lower leg with fat layer exposed; I87.2 Venous insufficiency (chronic) (peripheral); R60.9 Edema, unspecified; E11.59 Type 2 diabetes mellitus with other circulatory complications; E11.40 Type 2 diabetes mellitus with diabetic neuropathy, unspecified ==

== ENCOUNTER 2020-11-08 01:07 | Day surgery (SDC) | payer OTHER | END 2020-11-08 23:22 | disposition home or self-care (01) | LOC: WOUND 01:07 | DX: E11.621 Type 2 diabetes mellitus with foot ulcer (principal); E11.622 Type 2 diabetes mellitus with other skin ulcer; L97.522 Non-pressure chronic ulcer of other part of left foot with fat layer exposed; L97.822 Non-pressure chronic ulcer of other part of left lower leg with fat layer exposed; L97.812 Non-pressure chronic ulcer of other part of right lower leg with fat layer exposed; E11.59 Type 2 diabetes mellitus with other circulatory complications; E11.40 Type 2 diabetes mellitus with diabetic neuropathy, unspecified; I87.2 Venous insufficiency (chronic) (peripheral) | CPT/HCPCS: A9270 ==

== ENCOUNTER 2020-11-19 15:07 | Inpatient (IN) | payer MEDICARE, OTHER ==
[~2020-11-19] VITALS: Ht 172.7 cm; Wt 137.0 kg
[2020-11-19 16:12] LABS: BASOPHILS ABSOLUTE AUTO 0.03 K/mm3 (0.00-0.23); BASOPHILS PERCENT AUTO 0 % (0-2); EOSINOPHILS PERCENT AUTO 0 % (0-6); Hematocrit 28.7 % (37.0-53.0); IMMATURE GRAN ABSOLUTE AUTO 0.03 K/mm3 (0.00-0.10); IMMATURE GRAN PERCENT AUTO 0 % (0-1); LYMPHOCYTES ABSOLUTE AUTO 1.08 K/mm3 (0.84-5.20); LYMPHOCYTES PERCENT AUTO 13 % (21-46); MONOCYTES ABSOLUTE AUTO 1.14 K/mm3 (0.16-1.47); MONOCYTES PERCENT AUTO 14 % (4-13); Mean Corpuscular HGB 28.3 pg (26.0-34.0); Mean Corpuscular HGB Conc 31.4 g/dL (31.5-36.5); Mean Corpuscular Volume 90 fL (80-100); Mean Platelet Volume 10.3 fL (9.1-12.4); NEUTROPHILS ABSOLUTE AUTO 5.92 K/mm3 (1.96-9.15); NEUTROPHILS PERCENT AUTO 72 % (41-73); Platelet Count 284 K/mm3 (150-400); RDW Coefficient Variation 15.8 % (11.7-14.2); RDW Standard Deviation 53.1 fL (35.1-46.3); Red Blood Cell Count 3.18 M/mm3 (4.30-5.90)
[2020-11-19 16:20] LABS: Calcium, Ionized (POC) 1.31 mmol/L (1.10-1.46); Chloride (POC) 107 mmol/L (98-108); Creatinine (POC) 3.1 mg/dL (0.8-1.3); Glucose (ISTAT POC) 169 mg/dL (70-99); Hemoglobin (POC) 9.5 g/dL (13.5-17.5); Potassium (POC) 6.1 mmol/L (3.5-5.5); Sodium (POC) 137 mmol/L (135-148); Total CO2 (POC) 19 mmol/L (21-32)
[2020-11-19 16:50] LABS: Albumin, Blood 2.5 g/dL (3.4-5.0); Albumin/Globulin Ratio 0.6 (0.8-1.8); Bilirubin, Total 0.2 mg/dL (0.1-1.0); Bun/Creatinine Ratio 28.9 (12.0-20.0); Calcium, Blood 8.9 mg/dL (8.5-10.1); Creatinine, Blood 2.7 mg/dL (0.60-1.20); Globulin, Blood 4.1 g/dL (2.2-4.0); Potassium, Blood 6.1 mmol/L (3.5-5.5); Total Protein, Blood 6.6 g/dL (6.4-8.2)
[2020-11-19] MEDS ORDERED: PANT20 PO (18:25)
[2020-11-19] MEDS ORDERED: AMLODIPINE BESYL5 MG PO (18:25)
--- NOTE | 2020-11-20 00:39 | NUR ---
PATIENT IS A NEW ADMIT FROM THE ED. AXO X 3 AND THREE PERSON HEAVY TRANSFER FROM [facility] TO BED. REPORTS W/C BOUND LAST FEW DAYS. PERSONAL W/C IN ROOM BROUGHT UP FROM ED. NS FINISHED INFUSING FROM ED. ED RN ELLE REPORTS SHE DID NOT GIVEN HUMILIN R 5MG X ONE OR DEXTROSE 50% 25mL X ONE PER EMAR IN ED. NOT ABLE TO BACKTIME AND PULL IN PYXIS HERE. PHARMACY NOTIFIED AND REPORTED WOULD SEND MEDICATION AND SENT THEM AN HOUR LATER. MEDICATION NOT AVAILABLE IN NEW PYXIS. TELEMETRY PLACED AND TECH REPORTS SR 85 W/BBB. NPO. REPORTED BLE BELOW KNEES PAIN. PATIENT WITH BLE BELOW KNEES MULTIPLE SORES, SCABS, ULCERS, BLISTER, AND HONEY AREA. REPORTS HE CAME FROM [facility]OUND [facility]IN[facility]. DENIES CHEST PAIN, SOB, AND N/V. ORIENTED TO ROOM AND CALL LIGHT SYSTEM.
--- NOTE | 2020-11-20 00:59 | NUR ---
NS STARTED AT 75 mL/HR X ONE. IV ABX INFUSED FOLLWED BY IV VANCO PER PHARMACY. PATIENT RESTING AND REPORTS MINIMAL PAIN RELIEF WITH IV FENTANYL 50 MCG GIVEN PER EMAR. CALL LIGHT IN REACH.
--- NOTE | 2020-11-20 01:12 | NUR ---
PROVIDER CONSULT CALLED INTO ANSWERING SERVICE FOR DR MAGDALENA HAMPTON ([id number]).
[2020-11-20 02:17] LABS: BASOPHILS ABSOLUTE AUTO 0.03 K/mm3 (0.00-0.23); BASOPHILS PERCENT AUTO 0 % (0-2); EOSINOPHILS PERCENT AUTO 0 % (0-6); Hematocrit 31.7 % (37.0-53.0); Hemoglobin 10.1 g/dL (13.5-17.5); IMMATURE GRAN ABSOLUTE AUTO 0.09 K/mm3 (0.00-0.10); IMMATURE GRAN PERCENT AUTO 1 % (0-1); LYMPHOCYTES ABSOLUTE AUTO 1.17 K/mm3 (0.84-5.20); LYMPHOCYTES PERCENT AUTO 9 % (21-46); MONOCYTES ABSOLUTE AUTO 1.55 K/mm3 (0.16-1.47); MONOCYTES PERCENT AUTO 11 % (4-13); Mean Corpuscular HGB 28.1 pg (26.0-34.0); Mean Corpuscular HGB Conc 31.9 g/dL (31.5-36.5); Mean Corpuscular Volume 88 fL (80-100); Mean Platelet Volume 10.1 fL (9.1-12.4); NEUTROPHILS ABSOLUTE AUTO 10.76 K/mm3 (1.96-9.15); NEUTROPHILS PERCENT AUTO 79 % (41-73); Platelet Count 296 K/mm3 (150-400); RDW Coefficient Variation 15.6 % (11.7-14.2); RDW Standard Deviation 50.6 fL (35.1-46.3); Red Blood Cell Count 3.59 M/mm3 (4.30-5.90)
[2020-11-20 02:48] LABS: Albumin, Blood 2.6 g/dL (3.4-5.0); Albumin/Globulin Ratio 0.6 (0.8-1.8); Bilirubin, Total 0.2 mg/dL (0.1-1.0); Bun/Creatinine Ratio 29.1 (12.0-20.0); Creatinine, Blood 2.47 mg/dL (0.60-1.20); Globulin, Blood 4.4 g/dL (2.2-4.0); Potassium, Blood 6.2 mmol/L (3.5-5.5)
--- NOTE | 2020-11-20 03:46 | NUR ---
cH POTASSIUM 6.2 UP FROM 6.1, HOSPITALIST DR GUIDRY NOTIFIED AND ORDERED DEXTROSE 50% 25mL X ONE. IV CALCIUM GLUCONATE 1 GM PB X ONE AND IV HUMILIN R 5 UNITS X ONE. REPEAT LAB IN TWO HOURS AFTER GIVEN.
--- NOTE | 2020-11-20 05:35 | NUR ---
STATING 87% ON ROOM AIR. PLACED ON 2L O2 NC AND STATING 92%.
[2020-11-20 05:47] LABS: Source, Urine Clean Catch
[2020-11-20 05:52] LABS: Bilirubin, Urine Neg (Neg); Blood, Urine 2+ (Neg); Glucose Qualitative, Urine 1+ (Neg); Ketones, Urine Neg (Neg); Leukocyte Esterase, Urine Neg (Neg); Nitrite, Urine Neg (Neg); Protein, Urine 3+ (Neg); Specific Gravity, Urine 1.015 (1.003-1.022); Urobilinogen, Urine NORM (Normal)
[2020-11-20 05:57] LABS: Appearance, Urine Clear (Clear); Color, Urine Yellow (P-Yellow)
[2020-11-20 05:58] LABS: Bacteria Not Seen /hpf; Red Blood Cells, Urine 0-2 /hpf (0-2); Squamous Epithelial Cells Not Seen /hpf (Few); White Blood Cells, Urine Not Seen /hpf (0-5)
--- NOTE | 2020-11-20 06:17 | NUR ---
URINE SAMPLE COLLECTED AND SENT TO LAB
--- NOTE | 2020-11-20 06:44 | NUR ---
SHIFT SUMMARY PATIENT HAD NO ACUTE CHANGES. PENDING K+ LAB. AXOX 4 AND BEDREST REPORTING LAST 3-4 DAYS. WOUNDS TO BLE BELOW KNEES. PHOTOS IN CHART. CONSULT CALLED INTO RUFUS HAMPTON FOR AM. URINE COLLECTED AND SENT TO LAB. REPORTED BLE PAIN X 2 AND IV FENTANYL 50 MCG GIVEN PER EMAR. POWERHOUSE MECHANIC SUPERVISOR REPORTS SR 85 W/BBB. NS INFUSING AT 75ml/HR X ONE. IV VANCO AND IV ABX INFUSED. SEE HOSPITALIST DR GUIDRY ORDER FOR cH K+6.2, VSS/AFEBRILE. STATING 87 ON ROOM AIR THIS AM AND PLACED ON 2L O2 NC STATING 92%. CALL LIGHT IN REACH. BED IN LOWEST POSITION. WCTM.
[2020-11-20 07:29] LABS: Bun/Creatinine Ratio 30.4 (12.0-20.0); Calcium, Blood 9.4 mg/dL (8.5-10.1); Creatinine, Blood 2.24 mg/dL (0.60-1.20); Potassium, Blood 6.3 mmol/L (3.5-5.5)
--- NOTE | 2020-11-20 17:33 | NUR ---
PT AOX2 AND ON BEDREST AT THIS TIME. PT HAS BEEN VERY TIRED. PT HAS HAD CRITICAL POTASUIM THOROUGHOUT SHIFT. DR DEVI HAS BEEN NOTIFIED EACH TIME AND ORDERED MEDS TO EMAR ACCORDINGLY. PT'S IV STARTED LEAKING AND WAS TAKEN OUT. HATTIE CHARGE TOOK ULTRA SOUND IN AND COULD NOT PLACE IV. DR DEVI ORDERED PICLINE PLACEMENT AND TO HAVE POTASSIUM LAB PULLED NOW. WILL CONTINUE PT AT THIS TIME IS VERY TIRED,BUT WILL AROUSE. WILL CONTINUE TO MONITOR, CALL LIGHT IS WITHIN REACH.
--- NOTE | 2020-11-20 19:20 | NUR ---
BANDAGED PT'S LE PER DR HAMPTON INSTRUCTIONS. EX DRY WITH CURLEX AND HYROGEL ON OPEN WOUNDS. PT TOLERATED WELL.
--- NOTE | 2020-11-20 21:47 | NUR ---
K+ 6.[address] HEAD NOTIFIED. NO IV ACCESS SINCE AFTERNOON. REPORTS TO WAIT FOR PICC PLACEMENT PER ORDER FOR NEXT ORDERS. WCKEIRY
[2020-11-21 01:45] LABS: Albumin, Blood 2.3 g/dL (3.4-5.0); Anion Gap 5 mmol/L (6-16); Blood Urea Nitrogen 59 mg/dL (8-24); Bun/Creatinine Ratio 29.4 (12.0-20.0); CO2, Blood 21 mmol/L (21-32); Calcium, Blood 9.3 mg/dL (8.5-10.1); Chloride, Blood 116 mmol/L (98-108); Creatinine, Blood 2.01 mg/dL (0.60-1.20); Glomerular Filtration Rate 34 (60-); Glucose, Blood 194 mg/dL (70-99); Phosphorus, Blood 4.7 mg/dL (2.5-4.9); Potassium, Blood 5.6 mmol/L (3.5-5.5); Sodium, Blood 142 mmol/L (136-145)
--- NOTE | 2020-11-21 02:24 | NUR ---
PIV PLACED AND HOSPITALIST DR GUIDRY NOTIFIED AND REPORTS TO REDRAW POTASSIUM/RENAL PANEL. K+ 5.[address] TIME [address] GUIDRY REPORTS TO CONTINUE TO MONITOR.
--- NOTE | 2020-11-21 03:48 | NUR ---
SHIFT SUMMARY PATIENT K+ DOWN TO 5.6 FROM 6.[address] GUIDRY REPORTS TO CONTINUE TO MONITOR. PATIENT HAVING INCREASED CONFUSION AND TRYING MULTIPLE BED EXIT ACTIVATING BED ALARM. AXO X 2-3 AND BEDREST. NEW PIV PLACED. IV ABX INFUSED. CBG 178. BELT BUILDER HELPER REPORTS A-FLUTTER W/BBB @87. DENIES CHEST PAIN, SOB, AND N/V. WOUND DRESSINGS INTACT. SOMNOLENT MOST OF SHIFT. EX-SPOUSE/CAREGIVER CALLED AND GIVEN INFORMATION ON VISITING HOURS. CALL LIGHT IN REACH. BED IN LOWEST POSITION AND ALARM ACTIVATED. WCTM.
[2020-11-21 08:33] LABS: Albumin, Blood 2.4 g/dL (3.4-5.0); Anion Gap 6 mmol/L (6-16); Blood Urea Nitrogen 57 mg/dL (8-24); Bun/Creatinine Ratio 29.8 (12.0-20.0); CO2, Blood 21 mmol/L (21-32); Calcium, Blood 9.6 mg/dL (8.5-10.1); Chloride, Blood 115 mmol/L (98-108); Creatinine, Blood 1.91 mg/dL (0.60-1.20); Glomerular Filtration Rate 37 (60-); Glucose, Blood 198 mg/dL (70-99); Phosphorus, Blood 4.5 mg/dL (2.5-4.9); Potassium, Blood 5.2 mmol/L (3.5-5.5); Sodium, Blood 142 mmol/L (136-145)
--- NOTE | 2020-11-21 17:55 | NUR ---
PT AOX3 AND COOPERATIVE OF CARE. PT HAS BEEN MUCH CLEARER TODAY WITH INTERACTIONS AND TALKING A LOT ON THE PHONE. POTASSIUM HAS IMPROVED TO ACCEPTABLE LEVELS WITH THE LAST DRAW AT 5.0. PT VOIDING WELL AND CONTINUES TO HAVE BMs. INCONTINENT AND CONTINENT OF BOWEL AND BLADDER. PT CAN CALL APPROPRIATELY. PT HAD BANDAGES ON LE CHANGED AND WAS TREATED OR PAIN PER EMAR PRIOR. PT TOLERATED BANDAGE CHANGE. PT RESTING IN BED WITH CALL LIGHT IN REACH WILL CONTINUE TO MONITOR.
--- NOTE | 2020-11-22 03:32 | NUR ---
SHIFT SUMMARY PATIENT MENTATION IMPROVED SINCE LAST NOC SHIFT. AXOX 3 AND BEDREST. PIV REMAINS INTACT. IV ABX INFUSED. TAKES MEDICATION WHOLE WITH WATER. REFUSED CPAP PER RT. CBG 202. TRANSPORTATION SALES CONSULTANT REPORTS A-FLUTTER W/BBB IN 80'S. ON 2L O2 NC. DENIES CHEST PAIN, SOB, AND N/V. BLE WOUND DRESSINGS INTACT. VSS WITH LOW GRADE TEMP 99.2. CALL LIGHT IN REACH. BED IN LOWEST POSITION WILL CONTINUE TO MONITOR UNTIL DAY SHIFT NURSE ASSUMES CARE.
[2020-11-22 04:52] LABS: BASOPHILS ABSOLUTE AUTO 0.05 K/mm3 (0.00-0.23); BASOPHILS PERCENT AUTO 0 % (0-2); EOSINOPHILS PERCENT AUTO 0 % (0-6); Hematocrit 29.3 % (37.0-53.0); Hemoglobin 9.2 g/dL (13.5-17.5); IMMATURE GRAN ABSOLUTE AUTO 0.05 K/mm3 (0.00-0.10); IMMATURE GRAN PERCENT AUTO 0 % (0-1); LYMPHOCYTES ABSOLUTE AUTO 0.85 K/mm3 (0.84-5.20); LYMPHOCYTES PERCENT AUTO 7 % (21-46); MONOCYTES PERCENT AUTO 12 % (4-13); Mean Corpuscular HGB 27.9 pg (26.0-34.0); Mean Corpuscular HGB Conc 31.4 g/dL (31.5-36.5); Mean Corpuscular Volume 89 fL (80-100); Mean Platelet Volume 10.1 fL (9.1-12.4); NEUTROPHILS ABSOLUTE AUTO 9.78 K/mm3 (1.96-9.15); NEUTROPHILS PERCENT AUTO 81 % (41-73); Platelet Count 281 K/mm3 (150-400); RDW Coefficient Variation 15.4 % (11.7-14.2); RDW Standard Deviation 50.2 fL (35.1-46.3); White Blood Cell Count 12.13 K/mm3 (4.00-11.30)
[2020-11-22 05:16] LABS: Albumin, Blood 2.1 g/dL (3.4-5.0); Albumin/Globulin Ratio 0.5 (0.8-1.8); Bilirubin, Total 0.5 mg/dL (0.1-1.0); Bun/Creatinine Ratio 31.6 (12.0-20.0); Calcium, Blood 9.1 mg/dL (8.5-10.1); Creatinine, Blood 1.77 mg/dL (0.60-1.20); Globulin, Blood 4.4 g/dL (2.2-4.0); Magnesium, Blood 2.1 mg/dL (1.6-2.4); Potassium, Blood 4.2 mmol/L (3.5-5.5); Total Protein, Blood 6.5 g/dL (6.4-8.2)
[2020-11-22] MEDS ORDERED: MASOPHEN325 M3 PO (15:21)
[2020-11-22] MEDS ORDERED: BISA5EC PO (15:22)
[2020-11-22] MEDS ORDERED: ALBU90OI INH (15:22)
[2020-11-22] MEDS ORDERED: CEPH500 PO (15:23)
[2020-11-22] MEDS ORDERED: DOCU100 PO (15:24)
[2020-11-22] MEDS ORDERED: FURO20 PO (15:24)
[2020-11-22] MEDS ORDERED: CRANBERRY CONC1 EAC1 PO (15:24)
--- NOTE | 2020-11-22 17:05 | NUR ---
SHIFT SUMMARY PATIENT ALERT AND ORIENTED THIS SHIFT. PATIENT HAS BEEN ON BEDREST, 2 PERSON ASSIST TO THE BSC. PATIENT UP 1X TO THE BSC. PATIENT'S CAREGIVER IN THE ROOM THROUGHOUT THE AFTERNOON. PATIENT RECEIVED A HOME O2 EVALUATION LATE THIS AFTERNOON. PATIENT NEEDS 3L HOME O2. DISCHARGE DIFFERED TO TOMORROW TO SET UP HOME O2. PATIENT CURRENTLY LYING IN BED SLEEPING.
[2020-11-23 05:24] LABS: BASOPHILS ABSOLUTE AUTO 0.04 K/mm3 (0.00-0.23); BASOPHILS PERCENT AUTO 0 % (0-2); EOSINOPHILS PERCENT AUTO 0 % (0-6); Hematocrit 29.6 % (37.0-53.0); Hemoglobin 9.4 g/dL (13.5-17.5); IMMATURE GRAN ABSOLUTE AUTO 0.03 K/mm3 (0.00-0.10); IMMATURE GRAN PERCENT AUTO 0 % (0-1); LYMPHOCYTES ABSOLUTE AUTO 0.76 K/mm3 (0.84-5.20); LYMPHOCYTES PERCENT AUTO 8 % (21-46); MONOCYTES ABSOLUTE AUTO 1.18 K/mm3 (0.16-1.47); MONOCYTES PERCENT AUTO 12 % (4-13); Mean Corpuscular HGB 27.9 pg (26.0-34.0); Mean Corpuscular HGB Conc 31.8 g/dL (31.5-36.5); Mean Corpuscular Volume 88 fL (80-100); Mean Platelet Volume 10.2 fL (9.1-12.4); NEUTROPHILS ABSOLUTE AUTO 8.12 K/mm3 (1.96-9.15); NEUTROPHILS PERCENT AUTO 80 % (41-73); Platelet Count 282 K/mm3 (150-400); RDW Standard Deviation 48.2 fL (35.1-46.3); Red Blood Cell Count 3.37 M/mm3 (4.30-5.90); White Blood Cell Count 10.13 K/mm3 (4.00-11.30)
[2020-11-23 05:46] LABS: Anion Gap 7 mmol/L (6-16); Blood Urea Nitrogen 49 mg/dL (8-24); Bun/Creatinine Ratio 30.6 (12.0-20.0); CO2, Blood 24 mmol/L (21-32); Calcium, Blood 9.2 mg/dL (8.5-10.1); Chloride, Blood 111 mmol/L (98-108); Glomerular Filtration Rate 45 (60-); Glucose, Blood 136 mg/dL (70-99); Potassium, Blood 3.5 mmol/L (3.5-5.5); Sodium, Blood 142 mmol/L (136-145)
--- NOTE | 2020-11-23 05:46 | NUR ---
SUMMARY: PT A/OX3, SPECIFIES NEED AND IS PLEASANT AND COOPERATIVE W/CARE. HE REPORTS L.LEG WEAKNESS R/T HX OF STROKE. HE'S 2PA OOB TO BSC/TOILET AND HAD ATTENDS CHANGED PRN FOR INCONTINENCE. SPO2 REMAINS WNL ON 3L O2 W/SOME SOB NOTED UPON EXERTION. LEGS CONTINUE WEEPING W/SOME SCABS OBSERVED TO BLE VASCULAR WOUNDS. DX'S CHANGED THIS SHIFT D/T SATURATION AND MEPILEX WAS REPLACED TO L.HEEL BLISTER. TYLENOL RECIEVED FOR IMPROVED PAIN CONTROL. REPOSITIONING ASSIST PROVIDED PRN. NO ACUTE CHANGES, VSS/AFEBRILE. HE'S A.FLUTTER W/PVC'S AND BBB AT 70'S BPM ON TELEMETRY. PLAN IS FOR D/C TODAY W/REVASCULARIZATION PROBABLE AN OUTPATIENT.
[2020-11-23] MEDS ORDERED: XARELTO20 MG PO (11:11)
--- NOTE | 2020-11-23 16:23 | NUR ---
DISCHARGE SUMMARY PATIENT ALERT AND ORIENTED THIS SHIFT. PATIENT WAS A 2 PERSON ASSIST TO THE WHEELCHAIR, 1 ASSIST FROM WHEELCHAIR TO THE PATIENT'S VEHICLE. CAREGIVER PROVIDING TRANSPORT HOME. INSTRUCTIONS REVIEWED WITH CAREGIVER PER PATIENT'S REQUEST. IV REMOVED PRIOR TO DISCHARGE. PATIENT ON 3L O2 UPON DISCHARGE PER HOME O2 EVALUATION. PATIENT BELONGINGS WITH PATIENT UPON DISCHARGE.
== END 2020-11-23 15:55 | disposition home health service (06) | DRG 300 ==
LOC: ER 15:07 → MEDS 17:24
PROVIDERS: Emergency Medicine; Family Medicine; Physician Assistant; ADMIT Internal Medicine
DX: E11.51 Type 2 diabetes mellitus with diabetic peripheral angiopathy without gangrene (principal); N17.9 Acute kidney failure, unspecified; Z68.42 Body mass index [BMI] 45.0-49.9, adult; L97.929 Non-pressure chronic ulcer of unspecified part of left lower leg with unspecified severity; L97.919 Non-pressure chronic ulcer of unspecified part of right lower leg with unspecified severity; I50.32 Chronic diastolic (congestive) heart failure; L03.116 Cellulitis of left lower limb; I13.0 Hypertensive heart and chronic kidney disease with heart failure and stage 1 through stage 4 chronic kidney disease, or unspecified chronic kidney disease; I70.249 Atherosclerosis of native arteries of left leg with ulceration of unspecified site; I70.239 Atherosclerosis of native arteries of right leg with ulceration of unspecified site; E87.5 Hyperkalemia; M54.9 Dorsalgia, unspecified; G89.29 Other chronic pain; E66.01 Morbid (severe) obesity due to excess calories; E78.5 Hyperlipidemia, unspecified; N40.0 Benign prostatic hyperplasia without lower urinary tract symptoms; M19.90 Unspecified osteoarthritis, unspecified site; D63.1 Anemia in chronic kidney disease; G47.33 Obstructive sleep apnea (adult) (pediatric); N18.30 Chronic kidney disease, stage 3 unspecified; I25.10 Atherosclerotic heart disease of native coronary artery without angina pectoris; I25.2 Old myocardial infarction; Z79.84 Long term (current) use of oral hypoglycemic drugs; Z79.82 Long term (current) use of aspirin; Z79.899 Other long term (current) drug therapy; Z96.652 Presence of left artificial knee joint; Z79.02 Long term (current) use of antithrombotics/antiplatelets; Z88.8 Allergy status to other drugs, medicaments and biological substances; Z95.1 Presence of aortocoronary bypass graft; Z98.890 Other specified postprocedural states; Z87.891 Personal history of nicotine dependence; Z95.2 Presence of prosthetic heart valve
CPT/HCPCS: 36415; 71045; 73590; 76770; 76882; 80047; 80048; 80053; 80069; 81001; 82947; 83735; 83880; 84100; 84132; 85014; 85025; 86140; 87070; 87205; 93005; 93010; 94640; 94644; 94760; 94761; 96361; 96365; 96375; 99285-25; A9270; C9113; G0463; J0610; J0690; J0692; J1650; J1815; J1940; J2543; J3010; J3370; J7030; J7050

== ENCOUNTER 2020-11-30 19:23 | Inpatient (IN) | payer OTHER ==
[~2020-11-30] VITALS: Ht 177.8 cm; Wt 137.5 kg
[~2020-11-30 19:23] MED LIST changes: +ALBU90OI INH; +AMLODIPINE BESYL5 MG PO; +BISA5EC PO; +CRANBERRY CONC1 EAC1 PO; +FURO20 PO; +MASOPHEN325 M3 PO; +XARELTO20 MG PO
[2020-11-30 20:59] LABS: BASOPHILS ABSOLUTE AUTO 0.06 K/mm3 (0.00-0.23); BASOPHILS PERCENT AUTO 1 % (0-2); EOSINOPHILS PERCENT AUTO 0 % (0-6); Hematocrit 26.9 % (37.0-53.0); Hemoglobin 8.2 g/dL (13.5-17.5); IMMATURE GRAN ABSOLUTE AUTO 0.28 K/mm3 (0.00-0.10); IMMATURE GRAN PERCENT AUTO 2 % (0-1); LYMPHOCYTES ABSOLUTE AUTO 1.49 K/mm3 (0.84-5.20); LYMPHOCYTES PERCENT AUTO 11 % (21-46); MONOCYTES ABSOLUTE AUTO 1.07 K/mm3 (0.16-1.47); MONOCYTES PERCENT AUTO 8 % (4-13); Mean Corpuscular HGB 27.5 pg (26.0-34.0); Mean Corpuscular HGB Conc 30.5 g/dL (31.5-36.5); Mean Corpuscular Volume 90 fL (80-100); Mean Platelet Volume 9.9 fL (9.1-12.4); NEUTROPHILS ABSOLUTE AUTO 10.17 K/mm3 (1.96-9.15); NEUTROPHILS PERCENT AUTO 78 % (41-73); NRBC ABSOLUTE 0.05 K/mm3 (0.00-0.02); NRBC Auto 0.4 /100 WBC (0.0-0.2); Platelet Count 394 K/mm3 (150-400); RDW Coefficient Variation 15.8 % (11.7-14.2); RDW Standard Deviation 51.4 fL (35.1-46.3); Red Blood Cell Count 2.98 M/mm3 (4.30-5.90); White Blood Cell Count 13.07 K/mm3 (4.00-11.30)
[2020-11-30 21:21] LABS: Albumin, Blood 2.5 g/dL (3.4-5.0); Albumin/Globulin Ratio 0.6 (0.8-1.8); Bilirubin, Total 0.2 mg/dL (0.1-1.0); Bun/Creatinine Ratio 39.2 (12.0-20.0); Calcium, Blood 8.5 mg/dL (8.5-10.1); Creatinine, Blood 2.17 mg/dL (0.60-1.20); Globulin, Blood 4.4 g/dL (2.2-4.0); Potassium, Blood 4.8 mmol/L (3.5-5.5); Total Protein, Blood 6.9 g/dL (6.4-8.2); Troponin I 0.038 ng/mL (0.000-0.040)
[2020-12-01 03:23] LABS: SARS-Cov-2 (COVID-19) PCR, MMC NEGATIVE (NEGATIVE)
[2020-12-01 06:07] LABS: BASOPHILS ABSOLUTE AUTO 0.03 K/mm3 (0.00-0.23); BASOPHILS PERCENT AUTO 0 % (0-2); EOSINOPHILS PERCENT AUTO 0 % (0-6); Hematocrit 22.1 % (37.0-53.0); Hemoglobin 6.8 g/dL (13.5-17.5); IMMATURE GRAN ABSOLUTE AUTO 0.21 K/mm3 (0.00-0.10); IMMATURE GRAN PERCENT AUTO 2 % (0-1); LYMPHOCYTES ABSOLUTE AUTO 1.01 K/mm3 (0.84-5.20); LYMPHOCYTES PERCENT AUTO 8 % (21-46); MONOCYTES ABSOLUTE AUTO 1.12 K/mm3 (0.16-1.47); MONOCYTES PERCENT AUTO 9 % (4-13); Mean Corpuscular HGB 27.8 pg (26.0-34.0); Mean Corpuscular HGB Conc 30.8 g/dL (31.5-36.5); Mean Corpuscular Volume 90 fL (80-100); Mean Platelet Volume 10.2 fL (9.1-12.4); NEUTROPHILS ABSOLUTE AUTO 9.85 K/mm3 (1.96-9.15); NEUTROPHILS PERCENT AUTO 81 % (41-73); NRBC ABSOLUTE 0.04 K/mm3 (0.00-0.02); NRBC Auto 0.3 /100 WBC (0.0-0.2); Platelet Count 352 K/mm3 (150-400); RDW Coefficient Variation 15.8 % (11.7-14.2); RDW Standard Deviation 51.2 fL (35.1-46.3); Red Blood Cell Count 2.45 M/mm3 (4.30-5.90); White Blood Cell Count 12.22 K/mm3 (4.00-11.30)
[2020-12-01 06:33] LABS: Albumin, Blood 2.3 g/dL (3.4-5.0); Albumin/Globulin Ratio 0.6 (0.8-1.8); Bilirubin, Total 0.2 mg/dL (0.1-1.0); Bun/Creatinine Ratio 39.2 (12.0-20.0); Calcium, Blood 8.4 mg/dL (8.5-10.1); Creatinine, Blood 2.22 mg/dL (0.60-1.20); Potassium, Blood 4.8 mmol/L (3.5-5.5); Total Protein, Blood 6.3 g/dL (6.4-8.2)
[2020-12-01 08:19] LABS: Percent Saturation 13.5 % (20.0-50.0)
--- NOTE | 2020-12-01 13:01 | NUR ---
Echocardiogram performed.
[2020-12-02 04:15] LABS: BASOPHILS ABSOLUTE AUTO 0.03 K/mm3 (0.00-0.23); BASOPHILS PERCENT AUTO 0 % (0-2); EOSINOPHILS PERCENT AUTO 0 % (0-6); Hematocrit 21.4 % (37.0-53.0); Hemoglobin 6.6 g/dL (13.5-17.5); IMMATURE GRAN PERCENT AUTO 1 % (0-1); LYMPHOCYTES ABSOLUTE AUTO 0.68 K/mm3 (0.84-5.20); LYMPHOCYTES PERCENT AUTO 7 % (21-46); MONOCYTES ABSOLUTE AUTO 0.77 K/mm3 (0.16-1.47); MONOCYTES PERCENT AUTO 8 % (4-13); Mean Corpuscular HGB 27.6 pg (26.0-34.0); Mean Corpuscular HGB Conc 30.8 g/dL (31.5-36.5); Mean Corpuscular Volume 90 fL (80-100); NEUTROPHILS ABSOLUTE AUTO 8.25 K/mm3 (1.96-9.15); NEUTROPHILS PERCENT AUTO 84 % (41-73); NRBC ABSOLUTE 0.02 K/mm3 (0.00-0.02); NRBC Auto 0.2 /100 WBC (0.0-0.2); Platelet Count 312 K/mm3 (150-400); RDW Coefficient Variation 16.1 % (11.7-14.2); Red Blood Cell Count 2.39 M/mm3 (4.30-5.90); White Blood Cell Count 9.83 K/mm3 (4.00-11.30)
[2020-12-02 04:30] LABS: Albumin, Blood 2.3 g/dL (3.4-5.0); Anion Gap 6 mmol/L (6-16); Blood Urea Nitrogen 78 mg/dL (8-24); Bun/Creatinine Ratio 43.3 (12.0-20.0); CO2, Blood 23 mmol/L (21-32); Calcium, Blood 8.8 mg/dL (8.5-10.1); Chloride, Blood 110 mmol/L (98-108); Glomerular Filtration Rate 39 (60-); Glucose, Blood 221 mg/dL (70-99); Phosphorus, Blood 3.9 mg/dL (2.5-4.9); Potassium, Blood 4.9 mmol/L (3.5-5.5); Sodium, Blood 139 mmol/L (136-145)
--- NOTE | 2020-12-02 05:40 | NUR ---
ADOBE ARCHITECT SUMMARY PT HAS BEEN ON BIPAP FOR MOST OF THE NIGHT REFUSING TO WEAR IT ONCE BUT WAS UNABLE TO MAINTAIN O2 SATS >90% ON 4L NC SO BIPAP WAS PLACED BACK ON PT. PT'S BP ELEVATED THIS SHIFT W SBP IN THE 150'S HOWEVER PT GIVEN HYDRALAZINE X1 THIS SHIFT FOR SBP >160 WHICH BROUGHT IT DOWN TO THE 140'S. TELE SHOWING SR W BBB WELL A ST DEPRESSION. PT HAS DENIED ANY CP OR PRESSURE THIS SHIFT. HGB THIS AM WAS 6.6 SO ORDER FOR PRBC TRANSFUSION OBTAINED. NO BM THIS SHIFT SO GUAIAC STILL UNCOLLECTED. WILL REPORT TO ONCOMING RN.
--- NOTE | 2020-12-02 08:52 | NUR ---
pt sitting up in a chair with bipap in place, pt is a/ox3, pleasant and cooperative with care, follows commands well, denies pain, states breathing is better, lungs are clear in upper barone, dim with some occ fine crackles in bases, resp even and unlabored on bipap, no cough noted, hrr, tele in place running sr with bbb per monitor, see strip, +1 edema noted to b/lle, ppp+1, cap refill< 3sec vs stable, afebrile, iv to right ac site is clear and patent, btx4, abd large firm, incont and uses urinal to void, skin has an abrasion to right elbow, will place dressing, britany jules, call light in reach, started a unit of prbc's, will keep npo for cardiology consult, poss leola.
[2020-12-02 16:41] LABS: Hematocrit 25.5 % (37.0-53.0); Hemoglobin 7.6 g/dL (13.5-17.5)
--- NOTE | 2020-12-02 18:27 | NUR ---
PT HAD A BERNABE TODAY, TOLERATED WELL, IS STILL SLEEPY, V.S. STABLE, CURRENTLY ON 3LITERS, DID MOVE TO HIS SIDE AND VOIDED ON THE FLOOR AND SOME ON THE BED IN HIS SLEEP, BED BEING CHANGED AT THIS TIME, OINTMENT APPLIED TO AXEL AREA IT IS PINK. HAD SOME WATER, NO CHOKING NOTED, ORDERED HIM A TRAY FOR DINNER. CALL LIGHT IN REACH.
--- NOTE | 2020-12-02 19:36 | NUR ---
ASSUMED CARE OF PATIENT, SITTING UP IN BED NO NEEDS AT THIS TIME. SEE [facility] SHIFT ASSESSMENT FOR FULL ASSESSMENT.
--- NOTE | 2020-12-02 22:21 | NUR ---
RECEIVED REPORT AND ASSUMED CARE OF PT. HE IS LYING IN BED, NC & TELE IN PLACE. HE IS AWAKE AND ALERT, DENIES ANY NEEDS AT THIS TIME. EBONIE.
--- NOTE | 2020-12-03 01:46 | NUR ---
PT REMOVING NASAL CANNULA FREQUENTLY DESPITE EDUCATION. DESATURATING TO LOW 80'S ORA. RT REPLACED BIPAP, O2 SATS IMPROVED FROM LOW 90'S TO 95>. PT REPOSITIONED, LYING COMFORTABLY IN BED AT THIS TIME. WCTM.
[2020-12-03 04:33] LABS: BASOPHILS ABSOLUTE AUTO 0.03 K/mm3 (0.00-0.23); BASOPHILS PERCENT AUTO 0 % (0-2); EOSINOPHILS PERCENT AUTO 0 % (0-6); Hematocrit 26.2 % (37.0-53.0); IMMATURE GRAN ABSOLUTE AUTO 0.11 K/mm3 (0.00-0.10); IMMATURE GRAN PERCENT AUTO 1 % (0-1); LYMPHOCYTES ABSOLUTE AUTO 0.61 K/mm3 (0.84-5.20); LYMPHOCYTES PERCENT AUTO 5 % (21-46); MONOCYTES ABSOLUTE AUTO 1.12 K/mm3 (0.16-1.47); MONOCYTES PERCENT AUTO 9 % (4-13); Mean Corpuscular HGB 27.7 pg (26.0-34.0); Mean Corpuscular HGB Conc 30.5 g/dL (31.5-36.5); Mean Corpuscular Volume 91 fL (80-100); Mean Platelet Volume 10.2 fL (9.1-12.4); NEUTROPHILS ABSOLUTE AUTO 10.21 K/mm3 (1.96-9.15); NEUTROPHILS PERCENT AUTO 85 % (41-73); Platelet Count 292 K/mm3 (150-400); RDW Coefficient Variation 15.9 % (11.7-14.2); RDW Standard Deviation 51.1 fL (35.1-46.3); Red Blood Cell Count 2.89 M/mm3 (4.30-5.90); White Blood Cell Count 12.08 K/mm3 (4.00-11.30)
[2020-12-03 04:54] LABS: Albumin, Blood 2.3 g/dL (3.4-5.0); Anion Gap 6 mmol/L (6-16); Blood Urea Nitrogen 73 mg/dL (8-24); Bun/Creatinine Ratio 43.2 (12.0-20.0); CO2, Blood 24 mmol/L (21-32); Calcium, Blood 9.4 mg/dL (8.5-10.1); Chloride, Blood 111 mmol/L (98-108); Creatinine, Blood 1.69 mg/dL (0.60-1.20); Glomerular Filtration Rate 42 (60-); Glucose, Blood 218 mg/dL (70-99); Sodium, Blood 141 mmol/L (136-145)
--- NOTE | 2020-12-03 06:15 | NUR ---
SHIFT SUMMARY: LESLEY AROUSES EASILY AND RESPONDS APPROPRIATELY, ALTHOUGH HE OFTEN STATES "I DON'T KNOW" TO QUERIES. VSS, MAINTAINING SATS @ 90% ON 4L VIA NC. HE DID WEAR THE BIPAP FOR A TIME LAST NIGHT, BUT STATES THAT HE DOESN'T LIKE WEARING IT. HIS OXYGEN IMPROVES AND RESPIRATORY RATE DECREASES WHEN WEARING THE BIPAP. HE DID BECOME CONFUSED DURING THE NIGHT AND CONTINUALLY REMOVED THE O2 AND COMPLAINED OF DIFFICULTY BREATHING, AT WHICH TIME HE WAS REPLACED ON BIPAP WITH AN IMPROVEMENT IN MENTATION. ATTENDS IN PLACE. BED ALARM ON. WILL REPORT TO DAY SHIFT RN.
--- NOTE | 2020-12-03 08:00 | NUR ---
pt laying in bed was very aggitated and yelling out for help, he wanted to be repositioned, this was done and placed him on bipap, he went to sleep, lungs are clear in upper barone, dim course in bases, is on 4 liters n/c while not on bipap, no cough noted, hrr, tele in place running sr with bbb, see strip, +1 edema noted to b/l le, ppp+1, cap refill<3sec, vs stable, afebrile, iv site to rac is clear and patent, btx4, abd round soft nontender, reports no bm for a few days, started him on a stool softener, incont of urine, attends in place, skin has some scabs and abrasions, venous ulcer wounds to his b/l le, dressings in place, will change today, jorge a, zhane, britany, call light in reach.
--- NOTE | 2020-12-03 14:41 | NUR ---
family in to see pt. he is getting up to the chair at this time. dressings were changed to b/l legs. minimal drainage. has used the bipap most of the morning. call light in reach.
--- NOTE | 2020-12-03 18:44 | NUR ---
pt sat up in the chair today, is very tired, states he isn't feeling too good, no further changes this shift. call light in reach.
--- NOTE | 2020-12-04 05:58 | NUR ---
SHIFT SUMMARY PATIENT ALERT AND ORIENTED X3. HAD NO COMPLAINTS OF PAIN. REPORTED DIFFICULTY BREATHING, ESPECIALLY WHEN LYING DOWN. SLEPT WELL OVERNIGHT. NO ACUTE ISSUES NOTED. IV PATENT AND FLUSHED. BED IN LOWEST POSITION WITH WHEELS LOCKED AND ALARM ON. CALL LIGHT WITHIN REACH. REPORT GIVEN TO ONCOMING RN.
[2020-12-04 06:04] LABS: PCO2 Arterial 46.2 mmHg (35-45); PO2 Arterial 63.3 mmHg (80-100); pH Blood Arterial 7.38 (7.35-7.45)
--- NOTE | 2020-12-04 18:12 | NUR ---
SHIFT SUMMARY: NO ACUTE EVENTS. ON O2 @ 4 L/MIN NC WHILE AWAKE, BIPAP @ 12 WITH 35% [id number] SLEEPING. NO EVENTS ON TELEMETRY, SR 80'S, BBB. C/O PAIN IN BLE; MEDICATED PER EMAR. HAS DRAINING, NECROTIC WOUND ON L POSTERIOR CALF; DRESSINGS CHANGED TODAY. STATED LBM "SEVERAL DAYS AGO;" PRN BOWEL MEDS GIVEN, NO RESULT AT THIS TIME, IS PASSING FLATUS. INCONTINENT OF BLADDER, ATTENDS IN PLACE. TOLERATING PO INTAKE, APPETITE FAIR. VISITED THIS AFTERNOON. TRANSFERRED TO CHAIR WITH 1-2 PERSON ASSIST. PT ATTEMPTED TO WORK WITH PT, BUT HE DECLINED D/T PAIN.
--- NOTE | 2020-12-05 04:25 | NUR ---
Rn summary: Pt is pleasant, alert and oriented. Pt has been tired and just wanting to sleep. Pt did not tolerate the cpap, O2 sats 85-89% on 6.5 liters. Pt took off cpap, on 5 liters per NC, sats are 94%, has had a productive cough on and off. Pt has not had any c/o pain. Does have a wound to the left leg that was draining. Drsg removed, ABD aplied with kerlex. Tele shows SR with BBB rate 64. Edema to nathen feet and lower extremities. Patient with bed alarm on due to high Castillo scale, call light in reach. Will continue to monitor.
[2020-12-05 04:41] LABS: BASOPHILS ABSOLUTE AUTO 0.04 K/mm3 (0.00-0.23); BASOPHILS PERCENT AUTO 1 % (0-2); EOSINOPHILS PERCENT AUTO 0 % (0-6); Hematocrit 23.4 % (37.0-53.0); Hemoglobin 7.1 g/dL (13.5-17.5); IMMATURE GRAN ABSOLUTE AUTO 0.03 K/mm3 (0.00-0.10); IMMATURE GRAN PERCENT AUTO 0 % (0-1); LYMPHOCYTES ABSOLUTE AUTO 0.87 K/mm3 (0.84-5.20); LYMPHOCYTES PERCENT AUTO 10 % (21-46); MONOCYTES ABSOLUTE AUTO 0.87 K/mm3 (0.16-1.47); MONOCYTES PERCENT AUTO 10 % (4-13); Mean Corpuscular HGB 27.3 pg (26.0-34.0); Mean Corpuscular HGB Conc 30.3 g/dL (31.5-36.5); Mean Corpuscular Volume 90 fL (80-100); NEUTROPHILS ABSOLUTE AUTO 6.79 K/mm3 (1.96-9.15); NEUTROPHILS PERCENT AUTO 79 % (41-73); Platelet Count 317 K/mm3 (150-400); RDW Coefficient Variation 15.6 % (11.7-14.2); RDW Standard Deviation 50.3 fL (35.1-46.3)
[2020-12-05 05:00] LABS: Albumin, Blood 2.2 g/dL (3.4-5.0); Anion Gap 6 mmol/L (6-16); Blood Urea Nitrogen 64 mg/dL (8-24); Bun/Creatinine Ratio 38.3 (12.0-20.0); CO2, Blood 27 mmol/L (21-32); Calcium, Blood 9.2 mg/dL (8.5-10.1); Chloride, Blood 109 mmol/L (98-108); Creatinine, Blood 1.67 mg/dL (0.60-1.20); Glomerular Filtration Rate 40 (60-); Glucose, Blood 146 mg/dL (70-99); Phosphorus, Blood 4.4 mg/dL (2.5-4.9); Potassium, Blood 4.2 mmol/L (3.5-5.5); Sodium, Blood 142 mmol/L (136-145)
[2020-12-05 13:03] LABS: Hematocrit 22.3 % (37.0-53.0)
--- NOTE | 2020-12-05 18:05 | NUR ---
SHIFT SUMMARY WOUND CARE COMPLETED TO BLIATERAL LEGS TODAY. PAIN MEDS REQUIRED AFTER THIS. BOWEL CARE GIVEN TODAY. OCCULT STILL NEEDED. GI CONSULT PLACED & CALLED IN TODAY FOR POSSIBLE ANEMIA RELATED TO POSSIBLE GI BLEED. PT UP TO CHAIR FOR DINNER. ONE PERSON ASSIST FOR THIS. NO OTHER ACUTE CHANGES IN ASSESSMENT AT THIS TIME. VS REVIEWED. CALL LIGHT IN REACH.
[2020-12-06 08:34] LABS: BASOPHILS ABSOLUTE AUTO 0.03 K/mm3 (0.00-0.23); BASOPHILS PERCENT AUTO 0 % (0-2); EOSINOPHILS PERCENT AUTO 0 % (0-6); Hematocrit 21.1 % (37.0-53.0); Hemoglobin 6.7 g/dL (13.5-17.5); IMMATURE GRAN ABSOLUTE AUTO 0.03 K/mm3 (0.00-0.10); IMMATURE GRAN PERCENT AUTO 0 % (0-1); LYMPHOCYTES ABSOLUTE AUTO 0.83 K/mm3 (0.84-5.20); LYMPHOCYTES PERCENT AUTO 9 % (21-46); MONOCYTES ABSOLUTE AUTO 0.96 K/mm3 (0.16-1.47); MONOCYTES PERCENT AUTO 11 % (4-13); Mean Corpuscular HGB 28.2 pg (26.0-34.0); Mean Corpuscular HGB Conc 31.8 g/dL (31.5-36.5); Mean Corpuscular Volume 89 fL (80-100); Mean Platelet Volume 10.1 fL (9.1-12.4); NEUTROPHILS ABSOLUTE AUTO 7.11 K/mm3 (1.96-9.15); NEUTROPHILS PERCENT AUTO 79 % (41-73); Platelet Count 349 K/mm3 (150-400); RDW Coefficient Variation 15.3 % (11.7-14.2); RDW Standard Deviation 49.1 fL (35.1-46.3); Red Blood Cell Count 2.38 M/mm3 (4.30-5.90); White Blood Cell Count 8.96 K/mm3 (4.00-11.30)
[2020-12-06 09:04] LABS: Albumin, Blood 2.3 g/dL (3.4-5.0); Anion Gap 4 mmol/L (6-16); Blood Urea Nitrogen 57 mg/dL (8-24); Bun/Creatinine Ratio 36.3 (12.0-20.0); CO2, Blood 28 mmol/L (21-32); Calcium, Blood 9.4 mg/dL (8.5-10.1); Chloride, Blood 108 mmol/L (98-108); Creatinine, Blood 1.57 mg/dL (0.60-1.20); Glomerular Filtration Rate 43 (60-); Glucose, Blood 135 mg/dL (70-99); Phosphorus, Blood 4.3 mg/dL (2.5-4.9); Potassium, Blood 4.2 mmol/L (3.5-5.5); Sodium, Blood 140 mmol/L (136-145)
--- NOTE | 2020-12-06 17:17 | NUR ---
SHIFT SUMMARY PT AxOx3-4 WITH INTERMITTENT CONFUSION/FORGETFULNESS. PT HAD BLOOD TRANSFUSION TODAY, TOLERATED WELL, AND GI CONSULT. PLAN IS FOR PT TO HAVE ENDOSCOPY TOMORROW AM. NPO AFTER MIDNIGHT. PT REPORTS PAIN IN BACK AND BLE. MEDICATED PER EMAR. PT BREATHING WITHOUT DIFFICULTY ON 3L O2, WHICH IS BASELINE FOR PATIENT. DRESSING CHANGED ON BLE TODAY. PT CURRENTLY SITTING IN BED, VISITING EX . DENIES ANY NEEDS AT THIS TIME. VITALS REVIEWED. CALL LIGHT IN REACH.
[2020-12-07 04:34] LABS: PCO2 Arterial 47.3 mmHg (35-45); PO2 Arterial 61.7 mmHg (80-100)
[2020-12-07 04:42] LABS: BASOPHILS ABSOLUTE AUTO 0.03 K/mm3 (0.00-0.23); BASOPHILS PERCENT AUTO 0 % (0-2); EOSINOPHILS PERCENT AUTO 0 % (0-6); Hematocrit 23.6 % (37.0-53.0); Hemoglobin 7.4 g/dL (13.5-17.5); IMMATURE GRAN ABSOLUTE AUTO 0.03 K/mm3 (0.00-0.10); IMMATURE GRAN PERCENT AUTO 0 % (0-1); LYMPHOCYTES ABSOLUTE AUTO 0.92 K/mm3 (0.84-5.20); LYMPHOCYTES PERCENT AUTO 12 % (21-46); MONOCYTES ABSOLUTE AUTO 0.86 K/mm3 (0.16-1.47); MONOCYTES PERCENT AUTO 11 % (4-13); Mean Corpuscular HGB 27.5 pg (26.0-34.0); Mean Corpuscular HGB Conc 31.4 g/dL (31.5-36.5); Mean Corpuscular Volume 88 fL (80-100); Mean Platelet Volume 9.8 fL (9.1-12.4); NEUTROPHILS ABSOLUTE AUTO 6.03 K/mm3 (1.96-9.15); NEUTROPHILS PERCENT AUTO 77 % (41-73); Platelet Count 312 K/mm3 (150-400); RDW Coefficient Variation 15.3 % (11.7-14.2); RDW Standard Deviation 48.8 fL (35.1-46.3); Red Blood Cell Count 2.69 M/mm3 (4.30-5.90); White Blood Cell Count 7.87 K/mm3 (4.00-11.30)
[2020-12-07 05:04] LABS: Albumin, Blood 2.2 g/dL (3.4-5.0); Anion Gap 5 mmol/L (6-16); Blood Urea Nitrogen 52 mg/dL (8-24); Bun/Creatinine Ratio 29.2 (12.0-20.0); CO2, Blood 30 mmol/L (21-32); Chloride, Blood 105 mmol/L (98-108); Creatinine, Blood 1.78 mg/dL (0.60-1.20); Glomerular Filtration Rate 37 (60-); Glucose, Blood 152 mg/dL (70-99); Phosphorus, Blood 4.8 mg/dL (2.5-4.9); Potassium, Blood 4.3 mmol/L (3.5-5.5); Sodium, Blood 140 mmol/L (136-145)
--- NOTE | 2020-12-07 06:01 | NUR ---
SUMMARY: PT A/OX3-4, CALLS APPROPRIATELY AND SPECIFIES NEEDS. HE'S 1PA W/FWW D/T WEAKNESS AND BILAT LEG ULCERS. DX'S REMAIN C/D/I AND FENTANYL 50 MCG RECIEVED T/O NOCTE FOR TOLERABLE RELIEF OF LEG/BACK PAIN. HE STILL DIDN'T HAVE A BM THIS SHIFT SO STOOL SPECIMEN WASN'T OBTAINED AND HE WAS NPO AT [place] FOR ENDOSCOPY THIS AM. PT REMAINED ON 3-4L TITRATED O2 VIA NC T/O NOCTE D/T RT TRIALING HIM OFF BIPAP W/ABG DRAWN THIS AM. NO S/S BLEEDING AND PT DENIED DIZZYNESS. HGB IMPROVED THIS AM, NOW 7.4 WAS 6.7. HE'S ON NSR W/BBB AT 60'S BPM. VSS/AFEBRILE AND NO ACUTE CHANGES. WCTM AND REPORT TO DAY RN.
--- NOTE | 2020-12-07 16:08 | NUR ---
12/07/20 1608 TARAN DONOVAN History, Chart, Medications and Allergies reviewed before start of procedure. 3-LEAD EKG REVIEWED WITH PHYSICIAN PRIOR TO START OF PROCEDURE. O2 VIA POM INTACT THROUGHOUT SEDATION/PROCEDURE. MONITOR INTACT WITH CONTINUOUS PULSE OXIMETRY AND INTERMITTENT BP. MAC WITH DR. ROBERSON.
--- NOTE | 2020-12-07 17:21 | NUR ---
SHIFT SUMMARY PT AxOx4 WITH INTERMITTENT CONFUSION/FORGETFULNESS. PT REPORTS PAIN IN BLE TODAY. MEDICATED PER EMAR. PT WENT FOR EGD TODAY. CURRENTY BACK IN ROOM WITH STABLE VITALS. WOUND CARE/DRESSING CHANGES PERFORMED ON BLE TODAY. PT IS EAGER TO GET BACK HOME. PATIENT WORKED WITH PT/OT TODAY. CURRENTLY SLEEPING IN BED WITH CALL LIGHT IN REACH. REPORTS FEELING TIRED AND HUNGRY. TRAY ORDERED FOR TONIGHT. VITALS REVIEWED. PT DENIES ANY NEEDS AT THIS TIME.
--- NOTE | 2020-12-08 00:30 | NUR ---
LIZZGLMELIA NOTIFIED DR. RODRIGUEZ THAT 46 UNITS OF LANTUS HELD AT BEDTIME D/T BLOOD SUGAR ONLY BEING 146. PT HAD AN ENDOSCOPY AND HAD BEEN NPO FOR THAT PROCEDURE, AND PT HAS NOT HAD ANYTHING TO EAT SINCE I HAVE ARRIVED ON SHIFT. DR. RODRIGUEZ MADE AWARE OF THAT ALSO. HE ORDERED 10 UNITS OF LANTUS NOW X1.PT IS REQUESTING FOOD AT THIS TIME. SNADWHICH AND SNACKS TO BE PROVIDED WITH SEMGLEE DOSE.
--- NOTE | 2020-12-08 03:36 | NUR ---
SHIFT SUMMARY NO ACUTE CHANGES TO REPORT THIS SHIFT, PT HAS RESTED MOST OF THE NIGHT. NO S/S OF BLEEDING THIS SHIFT. NO BM THIS SHIFT, GUAIAC STOOL STILL NEEDS TO BE COLLECTED AT THIS TIME. PT S/P UPPER ENDOSCOPY YESTERDAY AND HAS DONE WELL POST PROCEDURE. VITALS ARE STABLE. BLE WOUNDS DRESSED, FOUL ODOR PRESENT FROM WOUNDS. ASSESSMENT REMAINS UNCHANGED. PLAN IS FOR DC TODAY. BED IN LOWEST POSITION, CALL LIGHT WITHIN REACH.
[2020-12-08 04:47] LABS: BASOPHILS ABSOLUTE AUTO 0.03 K/mm3 (0.00-0.23); BASOPHILS PERCENT AUTO 0 % (0-2); EOSINOPHILS PERCENT AUTO 0 % (0-6); Hematocrit 24.2 % (37.0-53.0); Hemoglobin 7.4 g/dL (13.5-17.5); IMMATURE GRAN ABSOLUTE AUTO 0.02 K/mm3 (0.00-0.10); IMMATURE GRAN PERCENT AUTO 0 % (0-1); LYMPHOCYTES ABSOLUTE AUTO 0.91 K/mm3 (0.84-5.20); LYMPHOCYTES PERCENT AUTO 12 % (21-46); MONOCYTES ABSOLUTE AUTO 0.85 K/mm3 (0.16-1.47); MONOCYTES PERCENT AUTO 11 % (4-13); Mean Corpuscular HGB 27.3 pg (26.0-34.0); Mean Corpuscular HGB Conc 30.6 g/dL (31.5-36.5); Mean Corpuscular Volume 89 fL (80-100); Mean Platelet Volume 10.2 fL (9.1-12.4); NEUTROPHILS ABSOLUTE AUTO 6.07 K/mm3 (1.96-9.15); NEUTROPHILS PERCENT AUTO 77 % (41-73); Platelet Count 316 K/mm3 (150-400); RDW Coefficient Variation 15.1 % (11.7-14.2); RDW Standard Deviation 48.5 fL (35.1-46.3); Red Blood Cell Count 2.71 M/mm3 (4.30-5.90); White Blood Cell Count 7.88 K/mm3 (4.00-11.30)
[2020-12-08 05:09] LABS: Albumin, Blood 2.3 g/dL (3.4-5.0); Anion Gap 4 mmol/L (6-16); Blood Urea Nitrogen 48 mg/dL (8-24); Bun/Creatinine Ratio 25.7 (12.0-20.0); CO2, Blood 31 mmol/L (21-32); Chloride, Blood 103 mmol/L (98-108); Creatinine, Blood 1.87 mg/dL (0.60-1.20); Glomerular Filtration Rate 35 (60-); Glucose, Blood 161 mg/dL (70-99); Potassium, Blood 4.3 mmol/L (3.5-5.5); Sodium, Blood 138 mmol/L (136-145)
[2020-12-08] MEDS ORDERED: FEROSUL325 M1 PO (11:39)
--- NOTE | 2020-12-08 12:07 | NUR ---
FOLLOW UP APPOINTMENT MADE WITH PCP FOR TOMORROW. REFERRAL FAXED WITH [employer] NOTES TO DR FORREST FOR REFFERRAL WELL BIPAP, APPT SCHEDULED. RICKY FLEMING, [facility] OFFICE WILL CALL TO SCHEDULE A FOLLOW UP APPT WITH PT. RX FAXED WITH CAMILLA BURRELL. PT REPORTS HE [facility]. SPOKE WITH CAREGIVER AND UPDATED OF DISCHARGE PLAN. ETHAN STEVE CALLED FOR W/C TRANSPORT HOME, AWAITING CALL BACK FOR TIME.
--- NOTE | 2020-12-08 12:38 | NUR ---
DISCHARGE- DISCHARGE INSTRUCTIONS REVIEWED WITH PT AND SPOKE WITH CAREGIVER ON THE PHONE. [facility] W[facility]C TRANSPORT TRANSPORTED PT HOME AT 1236. CAREGIVER HIGINIO CALLED AND NOTIFIED OF DISCHARGE.
--- NOTE | 2020-12-08 14:04 | NUR ---
PT DISCHARGED WITH DC INSTRUCTIONS. POWERGLIDE DC'D. WHEELCHAIR TAXI HOME TO CAREGIVER/EX . TX WITH OXYGEN 2L. PT DECLINED DRESSING CHANGE PRIOR TO DC.
== END 2020-12-08 12:44 | disposition home health service (06) | DRG 291 ==
LOC: ER 19:23 → ERHOLD 22:46 → MEDS 22:46 → PCU 22:46 → MEDS 12-04 21:59
PROVIDERS: Emergency Medicine; Family Medicine; ADMIT Internal Medicine
PROC: 5A09357 Assistance with Respiratory Ventilation, Less than 24 Consecutive Hours, Continuous Positive Airway Pressure (ICD-10-PCS; principal; 2020-11-30)
PROC: 0DJ08ZZ Inspection of Upper Intestinal Tract, Via Natural or Artificial Opening Endoscopic (ICD-10-PCS; 2020-12-07)
DX: I13.0 Hypertensive heart and chronic kidney disease with heart failure and stage 1 through stage 4 chronic kidney disease, or unspecified chronic kidney disease (principal); J96.21 Acute and chronic respiratory failure with hypoxia; I50.33 Acute on chronic diastolic (congestive) heart failure; J96.22 Acute and chronic respiratory failure with hypercapnia; N18.4 Chronic kidney disease, stage 4 (severe); J98.11 Atelectasis; Z68.41 Body mass index [BMI] 40.0-44.9, adult; Z20.822 Contact with and (suspected) exposure to COVID-19; D50.9 Iron deficiency anemia, unspecified; E11.22 Type 2 diabetes mellitus with diabetic chronic kidney disease; N40.0 Benign prostatic hyperplasia without lower urinary tract symptoms; E66.01 Morbid (severe) obesity due to excess calories; E78.5 Hyperlipidemia, unspecified; Z86.73 Personal history of transient ischemic attack (TIA), and cerebral infarction without residual deficits; M19.90 Unspecified osteoarthritis, unspecified site; K21.9 Gastro-esophageal reflux disease without esophagitis; Z79.899 Other long term (current) drug therapy; Z79.82 Long term (current) use of aspirin; E11.51 Type 2 diabetes mellitus with diabetic peripheral angiopathy without gangrene; I25.10 Atherosclerotic heart disease of native coronary artery without angina pectoris; Z95.1 Presence of aortocoronary bypass graft; G47.33 Obstructive sleep apnea (adult) (pediatric); Z88.8 Allergy status to other drugs, medicaments and biological substances; K44.9 Diaphragmatic hernia without obstruction or gangrene
CPT/HCPCS: 36415; 36600; 70450; 71045; 76376; 80053; 80069; 82607; 82728; 82746; 82803; 82947; 83540; 83550; 83605; 83880; 84145; 84484; 85014; 85018; 85025; 86850; 86900; 86901; 86923; 87040; 93005; 93010; 93306; 93312; 93321; 93325; 94640; 94644; 94660; 94664; 94667; 94668; 94762; 96365; 96375; 97110; 97161; 97166; 97530; 99285-25; A9270; C9113; J0360; J1815; J1885; J1940; J2370; J2405; J2704; J3010; J3475; J7040; J7120; P9016; U0004

== ENCOUNTER 2020-12-23 06:27 | Day surgery (SDC) | payer OTHER ==
[~2020-12-23] VITALS: Ht 172.7 cm; Wt 134.0 kg
[~2020-12-23 06:27] MED LIST changes: +FEROSUL325 M1 PO; +FLUT1DIS2 INH; +XARELTO10 M1 PO; -XARELTO20 MG PO
[2020-12-23 08:41] LABS: International Normalized Ratio 1.07; Prothrombin Time Results 11.5 Sec (9.7-11.5)
--- NOTE | 2020-12-23 11:50 | NUR ---
PT TO RECOVERY ROOM POST PROCEDURE. PT DROWSY, BUT EASILY ROUSABLE; ANSWERING QUESTIONS APPROPRIATELY. PT REPORTS L LOWER LEG DISCOMFORT /, BURINING IN CHARACTERL; REPORTS THIS HAS BEEN CHRONIC. MONITOR SR WITH IVCD 60-70'S, B/P 171/74, AFEBRILE, SPO2 86% ON RA, PLACED ON 4L > 95%. R GROIN NO SWELLING/HEMATOMA, SMALL BRUISE PRESENT; BUT UNCHANGED; TEGADERM DRSG INTACT, BLE PULSES DOPPLER SIGNAAL X 2. PT TAKING SIPS OF H20 WITHOUT ISSUE.
--- NOTE | 2020-12-23 12:10 | NUR ---
DR SAUNDERS NOTIFIED OF PT'S L LEG DISCOMFORT, ORDERS RECEIVED; ADMINISTERED TRAMADOL 50 MG PO. PT'S EX UPDATED WITH PT'S CONSENT.
--- NOTE | 2020-12-23 13:05 | NUR ---
PT REPORTS GOOD RELIEF OF L LEG DISCOMFORT AFTER TRAMODOL, 08/04. PT'S HOB ELEVATED TO 30, SITE UNCHANGED.
--- NOTE | 2020-12-23 14:30 | NUR ---
DR SAUNDERS IN TO DISCUSS RESULTS OF PROCEDURE WITH PT AND . PT ASSSITED GETTING DRESSED BY . PT BECAME NAUSEATED, NO EMESIS; DR SAUNDERS ORDERED 4 MG IV ZOFRAN. PT REPORTED NAUSEA RESOLVED W/1 MINUTES, DENIES NEED FOR ZOFRAN. PT'S SITE UNCANGED AFTER GETTING DRESSED AND TRANSFERRED INTO W/C; IV REMOVED-CANNULA INTACT.
--- NOTE | 2020-12-23 14:47 | NUR ---
PT AND RECEIVED DISCHARGE INSTRUCTIONS, MED LIST AND AFTER CARE INSTRUCTIONS; VERBALIZED GOOD UNDERSTANDING. PT LEFT FACILITY VIA W/C, CONDITION STABLE.
[2021-01-23] MEDS ORDERED: TRAM50 PO (05:15)
[2021-01-24] MEDS ORDERED: AZIT500 PO (14:32)
[2021-01-24] MEDS ORDERED: Vitamin B-121000 MCG PO (14:33)
[2021-01-24] MEDS ORDERED: Prinivil10 MG PO (14:34)
[2021-01-24] MEDS ORDERED: NYAMYC15 G1 TOP (14:35)
== END 2020-12-23 15:18 | disposition home or self-care (01) ==
LOC: MHTC 06:27
PROVIDERS: Radiology Diagnostic Radiology
DX: E11.51 Type 2 diabetes mellitus with diabetic peripheral angiopathy without gangrene (principal); E11.622 Type 2 diabetes mellitus with other skin ulcer; I70.242 Atherosclerosis of native arteries of left leg with ulceration of calf; I70.232 Atherosclerosis of native arteries of right leg with ulceration of calf; L97.229 Non-pressure chronic ulcer of left calf with unspecified severity; L97.219 Non-pressure chronic ulcer of right calf with unspecified severity; I25.10 Atherosclerotic heart disease of native coronary artery without angina pectoris; I10 Essential (primary) hypertension; E78.5 Hyperlipidemia, unspecified; Z95.1 Presence of aortocoronary bypass graft; Z98.62 Peripheral vascular angioplasty status; Z88.8 Allergy status to other drugs, medicaments and biological substances; Z79.4 Long term (current) use of insulin; Z79.02 Long term (current) use of antithrombotics/antiplatelets
CPT/HCPCS: 37232; 75716; 75774; 76937; 82947; 85347; 85610; 99152; 99153; A9270; C1725; C1760; C1769; C1885; C1887; C1894; C9772; J2250; J2405; J3010; J7030; J7050; Q9967

== ENCOUNTER 2020-12-28 00:32 | Emergency (ER) | payer OTHER ==
[~2020-12-28] VITALS: Ht 172.7 cm; Wt 131.5 kg
[2020-12-28 01:50] LABS: BASOPHILS ABSOLUTE AUTO 0.05 K/mm3 (0.00-0.23); BASOPHILS PERCENT AUTO 1 % (0-2); EOSINOPHILS PERCENT AUTO 0 % (0-6); Hematocrit 25.7 % (37.0-53.0); Hemoglobin 7.8 g/dL (13.5-17.5); IMMATURE GRAN ABSOLUTE AUTO 0.07 K/mm3 (0.00-0.10); IMMATURE GRAN PERCENT AUTO 1 % (0-1); LYMPHOCYTES ABSOLUTE AUTO 0.79 K/mm3 (0.84-5.20); LYMPHOCYTES PERCENT AUTO 8 % (21-46); MONOCYTES ABSOLUTE AUTO 1.02 K/mm3 (0.16-1.47); MONOCYTES PERCENT AUTO 11 % (4-13); Mean Corpuscular HGB 27.8 pg (26.0-34.0); Mean Corpuscular HGB Conc 30.4 g/dL (31.5-36.5); Mean Corpuscular Volume 92 fL (80-100); NEUTROPHILS ABSOLUTE AUTO 7.73 K/mm3 (1.96-9.15); NEUTROPHILS PERCENT AUTO 80 % (41-73); Platelet Count 290 K/mm3 (150-400); RDW Coefficient Variation 18.4 % (11.7-14.2); RDW Standard Deviation 61.8 fL (35.1-46.3); Red Blood Cell Count 2.81 M/mm3 (4.30-5.90); White Blood Cell Count 9.66 K/mm3 (4.00-11.30)
[2020-12-28 02:17] LABS: Bun/Creatinine Ratio 22.1 (12.0-20.0); Calcium, Blood 8.8 mg/dL (8.5-10.1); Creatinine, Blood 2.89 mg/dL (0.60-1.20)
[2021-01-23] MEDS ORDERED: TRAM50 PO (05:15)
[2021-01-24] MEDS ORDERED: AZIT500 PO (14:32)
[2021-01-24] MEDS ORDERED: Vitamin B-121000 MCG PO (14:33)
[2021-01-24] MEDS ORDERED: Prinivil10 MG PO (14:34)
[2021-01-24] MEDS ORDERED: NYAMYC15 G1 TOP (14:35)
== END 2020-12-28 03:47 | disposition home or self-care (01) ==
LOC: ER 00:32
PROVIDERS: Student in an Organized Health Care Education/Training Program
DX: Z00.00 Encounter for general adult medical examination without abnormal findings (principal); R19.7 Diarrhea, unspecified; D64.9 Anemia, unspecified; E11.9 Type 2 diabetes mellitus without complications; Z88.3 Allergy status to other anti-infective agents; Z79.4 Long term (current) use of insulin
CPT/HCPCS: 80048; 85025; 99284

== ENCOUNTER 2021-01-19 00:32 | Day surgery (SDC) | payer OTHER ==
[2021-01-23] MEDS ORDERED: TRAM50 PO (05:15)
[2021-01-24] MEDS ORDERED: AZIT500 PO (14:32)
[2021-01-24] MEDS ORDERED: Vitamin B-121000 MCG PO (14:33)
[2021-01-24] MEDS ORDERED: Prinivil10 MG PO (14:34)
[2021-01-24] MEDS ORDERED: NYAMYC15 G1 TOP (14:35)
== END 2021-01-19 23:23 | disposition home or self-care (01) ==
LOC: WOUND 00:32
DX: E11.622 Type 2 diabetes mellitus with other skin ulcer (principal); L97.825 Non-pressure chronic ulcer of other part of left lower leg with muscle involvement without evidence of necrosis; L97.822 Non-pressure chronic ulcer of other part of left lower leg with fat layer exposed; L97.812 Non-pressure chronic ulcer of other part of right lower leg with fat layer exposed; E11.621 Type 2 diabetes mellitus with foot ulcer; L97.522 Non-pressure chronic ulcer of other part of left foot with fat layer exposed; B87.1 Wound myiasis; E11.59 Type 2 diabetes mellitus with other circulatory complications; I87.2 Venous insufficiency (chronic) (peripheral); E11.40 Type 2 diabetes mellitus with diabetic neuropathy, unspecified; R60.9 Edema, unspecified; E11.51 Type 2 diabetes mellitus with diabetic peripheral angiopathy without gangrene
CPT/HCPCS: A9270

== ENCOUNTER 2021-01-21 02:38 | Day surgery (SDC) | payer OTHER ==
[2021-01-23] MEDS ORDERED: TRAM50 PO (05:15)
[2021-01-24] MEDS ORDERED: AZIT500 PO (14:32)
[2021-01-24] MEDS ORDERED: Vitamin B-121000 MCG PO (14:33)
[2021-01-24] MEDS ORDERED: Prinivil10 MG PO (14:34)
[2021-01-24] MEDS ORDERED: NYAMYC15 G1 TOP (14:35)
== END 2021-01-21 23:31 | disposition home or self-care (01) ==
LOC: WOUND 02:38
DX: L97.822 Non-pressure chronic ulcer of other part of left lower leg with fat layer exposed (principal)

== ENCOUNTER 2021-01-23 00:55 | Inpatient (IN) | payer OTHER ==
[~2021-01-23] VITALS: Ht 177.8 cm; Wt 131.5 kg
[2021-01-23 01:26] LABS: BASOPHILS ABSOLUTE AUTO 0.05 K/mm3 (0.00-0.23); BASOPHILS PERCENT AUTO 0 % (0-2); EOSINOPHILS ABSOLUTE AUTO 0.11 K/mm3 (0.00-0.68); EOSINOPHILS PERCENT AUTO 1 % (0-6); Hematocrit 30.4 % (37.0-53.0); Hemoglobin 9.2 g/dL (13.5-17.5); IMMATURE GRAN ABSOLUTE AUTO 0.05 K/mm3 (0.00-0.10); IMMATURE GRAN PERCENT AUTO 0 % (0-1); LYMPHOCYTES ABSOLUTE AUTO 1.07 K/mm3 (0.84-5.20); LYMPHOCYTES PERCENT AUTO 9 % (21-46); MONOCYTES ABSOLUTE AUTO 1.05 K/mm3 (0.16-1.47); MONOCYTES PERCENT AUTO 9 % (4-13); Mean Corpuscular HGB 25.6 pg (26.0-34.0); Mean Corpuscular HGB Conc 30.3 g/dL (31.5-36.5); Mean Corpuscular Volume 84 fL (80-100); Mean Platelet Volume 9.5 fL (9.1-12.4); NEUTROPHILS ABSOLUTE AUTO 9.72 K/mm3 (1.96-9.15); NEUTROPHILS PERCENT AUTO 81 % (41-73); Platelet Count 367 K/mm3 (150-400); RDW Coefficient Variation 16.8 % (11.7-14.2); RDW Standard Deviation 52.7 fL (35.1-46.3); White Blood Cell Count 12.05 K/mm3 (4.00-11.30)
[2021-01-23 01:48] LABS: Albumin/Globulin Ratio 0.7 (0.8-1.8); Bilirubin, Total 0.3 mg/dL (0.1-1.0); Bun/Creatinine Ratio 17.7 (12.0-20.0); Creatinine, Blood 1.86 mg/dL (0.60-1.20); Globulin, Blood 4.5 g/dL (2.2-4.0); Total Protein, Blood 7.5 g/dL (6.4-8.2); Troponin I 0.047 ng/mL (0.000-0.040)
[2021-01-23 02:28] LABS: SARS-Cov-2 (COVID-19) PCR, MMC NEGATIVE (NEGATIVE)
[2021-01-23] MEDS ORDERED: TRAM50 PO ×2 (05:15)
[2021-01-23 08:52] LABS: Troponin I 0.084 ng/mL (0.000-0.040)
[2021-01-23 15:33] LABS: Troponin I 0.063 ng/mL (0.000-0.040)
[2021-01-24 05:06] LABS: BASOPHILS ABSOLUTE AUTO 0.02 K/mm3 (0.00-0.23); BASOPHILS PERCENT AUTO 0 % (0-2); EOSINOPHILS PERCENT AUTO 0 % (0-6); Hematocrit 27.1 % (37.0-53.0); Hemoglobin 8.3 g/dL (13.5-17.5); IMMATURE GRAN ABSOLUTE AUTO 0.06 K/mm3 (0.00-0.10); IMMATURE GRAN PERCENT AUTO 1 % (0-1); LYMPHOCYTES ABSOLUTE AUTO 0.91 K/mm3 (0.84-5.20); LYMPHOCYTES PERCENT AUTO 7 % (21-46); MONOCYTES ABSOLUTE AUTO 1.02 K/mm3 (0.16-1.47); MONOCYTES PERCENT AUTO 8 % (4-13); Mean Corpuscular HGB 25.9 pg (26.0-34.0); Mean Corpuscular HGB Conc 30.6 g/dL (31.5-36.5); Mean Corpuscular Volume 84 fL (80-100); Mean Platelet Volume 9.7 fL (9.1-12.4); NEUTROPHILS ABSOLUTE AUTO 10.63 K/mm3 (1.96-9.15); NEUTROPHILS PERCENT AUTO 84 % (41-73); Platelet Count 304 K/mm3 (150-400); RDW Standard Deviation 52.8 fL (35.1-46.3); Red Blood Cell Count 3.21 M/mm3 (4.30-5.90); White Blood Cell Count 12.64 K/mm3 (4.00-11.30)
[2021-01-24 05:42] LABS: Albumin, Blood 2.6 g/dL (3.4-5.0); Albumin/Globulin Ratio 0.6 (0.8-1.8); Bilirubin, Total 0.3 mg/dL (0.1-1.0); Bun/Creatinine Ratio 23.4 (12.0-20.0); Creatinine, Blood 1.71 mg/dL (0.60-1.20); Potassium, Blood 4.1 mmol/L (3.5-5.5); Total Protein, Blood 6.6 g/dL (6.4-8.2)
[2021-01-24] MEDS ORDERED: AZIT500 PO ×2 (14:32)
[2021-01-24] MEDS ORDERED: Vitamin B-121000 MCG PO ×2 (14:33)
[2021-01-24] MEDS ORDERED: Prinivil10 MG PO ×2 (14:34)
[2021-01-24] MEDS ORDERED: NYAMYC15 G1 TOP ×2 (14:35)
== END 2021-01-24 17:30 | disposition home or self-care (01) | DRG 280 ==
LOC: ER 00:55 → ERHOLD 00:56 → SURS 06:42
PROVIDERS: Emergency Medicine; ADMIT Internal Medicine
DX: I13.0 Hypertensive heart and chronic kidney disease with heart failure and stage 1 through stage 4 chronic kidney disease, or unspecified chronic kidney disease (principal); J18.9 Pneumonia, unspecified organism; I21.A1 Myocardial infarction type 2; I50.33 Acute on chronic diastolic (congestive) heart failure; J96.21 Acute and chronic respiratory failure with hypoxia; Z68.43 Body mass index [BMI] 50.0-59.9, adult; E11.22 Type 2 diabetes mellitus with diabetic chronic kidney disease; D63.1 Anemia in chronic kidney disease; G89.29 Other chronic pain; M54.9 Dorsalgia, unspecified; G47.33 Obstructive sleep apnea (adult) (pediatric); E66.01 Morbid (severe) obesity due to excess calories; Z20.822 Contact with and (suspected) exposure to COVID-19; D63.8 Anemia in other chronic diseases classified elsewhere; Z96.652 Presence of left artificial knee joint; E11.51 Type 2 diabetes mellitus with diabetic peripheral angiopathy without gangrene; N40.0 Benign prostatic hyperplasia without lower urinary tract symptoms; K21.9 Gastro-esophageal reflux disease without esophagitis; E78.5 Hyperlipidemia, unspecified; I44.7 Left bundle-branch block, unspecified; M19.90 Unspecified osteoarthritis, unspecified site; E11.42 Type 2 diabetes mellitus with diabetic polyneuropathy; I87.8 Other specified disorders of veins; I16.0 Hypertensive urgency; N18.30 Chronic kidney disease, stage 3 unspecified; I25.2 Old myocardial infarction; Z99.81 Dependence on supplemental oxygen; Z88.8 Allergy status to other drugs, medicaments and biological substances; Z86.73 Personal history of transient ischemic attack (TIA), and cerebral infarction without residual deficits; Z95.1 Presence of aortocoronary bypass graft; Z98.890 Other specified postprocedural states; Z86.010 Personal history of colon polyps; Z87.891 Personal history of nicotine dependence; Z95.2 Presence of prosthetic heart valve; Z79.4 Long term (current) use of insulin; Z79.02 Long term (current) use of antithrombotics/antiplatelets; Z79.01 Long term (current) use of anticoagulants
CPT/HCPCS: 36415; 71045; 80053; 82550; 82947; 83880; 84145; 84484; 85025; 93005; 93010; 94644; 94761; 96372-59; 96374; 96375; 96376; 99285-25; A9270; J1100; J1650; J1940; J3010; U0004

== ENCOUNTER 2021-01-27 03:13 | Day surgery (SDC) | payer OTHER ==
[~2021-01-27 03:13] MED LIST changes: +AZIT500 PO; +NYAMYC15 G1 TOP; +Prinivil10 MG PO; +TRAM50 PO; +Vitamin B-121000 MCG PO
== END 2021-01-27 23:12 | disposition home or self-care (01) ==
LOC: WOUND 03:13
DX: E11.622 Type 2 diabetes mellitus with other skin ulcer (principal); L97.822 Non-pressure chronic ulcer of other part of left lower leg with fat layer exposed; L97.812 Non-pressure chronic ulcer of other part of right lower leg with fat layer exposed; E11.621 Type 2 diabetes mellitus with foot ulcer; L97.522 Non-pressure chronic ulcer of other part of left foot with fat layer exposed; L97.529 Non-pressure chronic ulcer of other part of left foot with unspecified severity; L97.519 Non-pressure chronic ulcer of other part of right foot with unspecified severity; B87.1 Wound myiasis; E11.59 Type 2 diabetes mellitus with other circulatory complications; I87.2 Venous insufficiency (chronic) (peripheral); E11.40 Type 2 diabetes mellitus with diabetic neuropathy, unspecified; R60.9 Edema, unspecified; E11.51 Type 2 diabetes mellitus with diabetic peripheral angiopathy without gangrene
CPT/HCPCS: A9270

== ENCOUNTER 2021-02-03 01:47 | Day surgery (SDC) | payer OTHER | END 2021-02-03 23:14 | disposition home or self-care (01) | LOC: WOUND 01:47 | DX: E11.622 Type 2 diabetes mellitus with other skin ulcer (principal); E11.621 Type 2 diabetes mellitus with foot ulcer; L97.825 Non-pressure chronic ulcer of other part of left lower leg with muscle involvement without evidence of necrosis; L97.812 Non-pressure chronic ulcer of other part of right lower leg with fat layer exposed; L97.519 Non-pressure chronic ulcer of other part of right foot with unspecified severity; L97.522 Non-pressure chronic ulcer of other part of left foot with fat layer exposed; B87.1 Wound myiasis; E11.59 Type 2 diabetes mellitus with other circulatory complications; I87.2 Venous insufficiency (chronic) (peripheral); E11.40 Type 2 diabetes mellitus with diabetic neuropathy, unspecified; R60.9 Edema, unspecified; E11.51 Type 2 diabetes mellitus with diabetic peripheral angiopathy without gangrene | CPT/HCPCS: A9270 ==

== ENCOUNTER 2021-02-10 03:14 | Day surgery (SDC) | payer OTHER | END 2021-02-10 23:16 | disposition home or self-care (01) | LOC: WOUND 03:14 | DX: L97.822 Non-pressure chronic ulcer of other part of left lower leg with fat layer exposed (principal); L97.812 Non-pressure chronic ulcer of other part of right lower leg with fat layer exposed; B87.1 Wound myiasis; E11.51 Type 2 diabetes mellitus with diabetic peripheral angiopathy without gangrene; E11.59 Type 2 diabetes mellitus with other circulatory complications; E11.622 Type 2 diabetes mellitus with other skin ulcer; I87.2 Venous insufficiency (chronic) (peripheral); E11.40 Type 2 diabetes mellitus with diabetic neuropathy, unspecified; R60.9 Edema, unspecified | CPT/HCPCS: A9270 ==

== ENCOUNTER 2021-02-18 04:26 | Day surgery (SDC) | payer OTHER | END 2021-02-18 23:20 | disposition home or self-care (01) | LOC: WOUND 04:26 | DX: E11.622 Type 2 diabetes mellitus with other skin ulcer (principal); L97.825 Non-pressure chronic ulcer of other part of left lower leg with muscle involvement without evidence of necrosis; L97.822 Non-pressure chronic ulcer of other part of left lower leg with fat layer exposed; L97.812 Non-pressure chronic ulcer of other part of right lower leg with fat layer exposed; E11.621 Type 2 diabetes mellitus with foot ulcer; L97.522 Non-pressure chronic ulcer of other part of left foot with fat layer exposed; B87.1 Wound myiasis; E11.59 Type 2 diabetes mellitus with other circulatory complications; I87.2 Venous insufficiency (chronic) (peripheral); E11.40 Type 2 diabetes mellitus with diabetic neuropathy, unspecified; R60.9 Edema, unspecified; E11.51 Type 2 diabetes mellitus with diabetic peripheral angiopathy without gangrene | CPT/HCPCS: A9270 ==

== ENCOUNTER 2021-03-10 01:30 | Day surgery (SDC) | payer OTHER | END 2021-03-10 23:11 | disposition home or self-care (01) | LOC: WOUND 01:30 | DX: E11.622 Type 2 diabetes mellitus with other skin ulcer (principal); L97.825 Non-pressure chronic ulcer of other part of left lower leg with muscle involvement without evidence of necrosis; L97.822 Non-pressure chronic ulcer of other part of left lower leg with fat layer exposed; L97.812 Non-pressure chronic ulcer of other part of right lower leg with fat layer exposed; E11.621 Type 2 diabetes mellitus with foot ulcer; L97.522 Non-pressure chronic ulcer of other part of left foot with fat layer exposed; S91.114A Laceration without foreign body of right lesser toe(s) without damage to nail, initial encounter; X58.XXXA Exposure to other specified factors, initial encounter; B87.1 Wound myiasis; E11.59 Type 2 diabetes mellitus with other circulatory complications; I87.2 Venous insufficiency (chronic) (peripheral); E11.40 Type 2 diabetes mellitus with diabetic neuropathy, unspecified; R60.9 Edema, unspecified; E11.51 Type 2 diabetes mellitus with diabetic peripheral angiopathy without gangrene | CPT/HCPCS: 87070; 87075; 87205; A9270 ==

== ENCOUNTER 2021-03-25 05:40 | Day surgery (SDC) | payer OTHER | END 2021-03-25 23:51 | disposition home or self-care (01) | LOC: WOUND 05:40 | DX: E11.622 Type 2 diabetes mellitus with other skin ulcer (principal); L97.825 Non-pressure chronic ulcer of other part of left lower leg with muscle involvement without evidence of necrosis; L97.819 Non-pressure chronic ulcer of other part of right lower leg with unspecified severity; L97.822 Non-pressure chronic ulcer of other part of left lower leg with fat layer exposed; E11.621 Type 2 diabetes mellitus with foot ulcer; L97.529 Non-pressure chronic ulcer of other part of left foot with unspecified severity; E11.59 Type 2 diabetes mellitus with other circulatory complications; I87.2 Venous insufficiency (chronic) (peripheral); E11.40 Type 2 diabetes mellitus with diabetic neuropathy, unspecified; R60.9 Edema, unspecified; E11.51 Type 2 diabetes mellitus with diabetic peripheral angiopathy without gangrene | CPT/HCPCS: A9270 ==

== ENCOUNTER 2021-04-04 06:05 | Inpatient (IN) | payer OTHER ==
[~2021-04-04] VITALS: Ht 177.8 cm; Wt 118.9 kg
[2021-04-04 06:52] LABS: BASOPHILS ABSOLUTE AUTO 0.03 K/mm3 (0.00-0.23); BASOPHILS PERCENT AUTO 0 % (0-2); EOSINOPHILS PERCENT AUTO 0 % (0-6); Hematocrit 21.9 % (37.0-53.0); Hemoglobin 6.4 g/dL (13.5-17.5); IMMATURE GRAN ABSOLUTE AUTO 0.03 K/mm3 (0.00-0.10); IMMATURE GRAN PERCENT AUTO 0 % (0-1); LYMPHOCYTES ABSOLUTE AUTO 0.66 K/mm3 (0.84-5.20); LYMPHOCYTES PERCENT AUTO 6 % (21-46); MONOCYTES ABSOLUTE AUTO 0.69 K/mm3 (0.16-1.47); MONOCYTES PERCENT AUTO 6 % (4-13); Mean Corpuscular HGB 24.2 pg (26.0-34.0); Mean Corpuscular HGB Conc 29.2 g/dL (31.5-36.5); Mean Corpuscular Volume 83 fL (80-100); Mean Platelet Volume 10.5 fL (9.1-12.4); NEUTROPHILS ABSOLUTE AUTO 10.18 K/mm3 (1.96-9.15); NEUTROPHILS PERCENT AUTO 88 % (41-73); Platelet Count 240 K/mm3 (150-400); RDW Standard Deviation 56.7 fL (35.1-46.3); Red Blood Cell Count 2.65 M/mm3 (4.30-5.90); White Blood Cell Count 11.59 K/mm3 (4.00-11.30)
[2021-04-04 06:58] LABS: Base Excess Venous -15.1 mmol/L; Bicarbonate Venous 13.6 mmol/L (24.0-30.0); PCO2 Venous 28.4 mmHg (38-42); pH Blood Venous 7.24 (7.34-7.37)
[2021-04-04 07:23] LABS: Influenza A, PCR NEGATIVE (NEGATIVE); Influenza B, PCR NEGATIVE (NEGATIVE); Resp Syncytial Virus, PCR NEGATIVE (NEGATIVE); SARS-Cov-2 (COVID-19) PCR, MMC NEGATIVE (NEGATIVE)
[2021-04-04 07:35] LABS: Albumin, Blood 2.5 g/dL (3.4-5.0); Albumin/Globulin Ratio 0.5 (0.8-1.8); Bilirubin, Total 0.3 mg/dL (0.1-1.0); Bun/Creatinine Ratio 33.3 (12.0-20.0); Calcium, Blood 9.4 mg/dL (8.5-10.1); Creatinine, Blood 4.12 mg/dL (0.60-1.20); Globulin, Blood 4.7 g/dL (2.2-4.0); Potassium, Blood 8.2 mmol/L (3.5-5.5); Total Protein, Blood 7.2 g/dL (6.4-8.2)
[2021-04-04 07:36] LABS: Troponin I 0.072 ng/mL (0.000-0.040)
[2021-04-04 09:17] LABS: PCO2 Arterial 34.6 mmHg (35-45); PO2 Arterial 98.2 mmHg (80-100)
[2021-04-04 11:15] LABS: Base Excess Venous -12.5 mmol/L; Bicarbonate Venous 15.2 mmol/L (24.0-30.0); PCO2 Venous 40.1 mmHg (38-42)
[2021-04-04 12:03] LABS: Troponin I 0.084 ng/mL (0.000-0.040)
[2021-04-04 12:13] LABS: Potassium, Blood 7.2 mmol/L (3.5-5.5)
[2021-04-04 12:53] LABS: Source, Urine Catheter
[2021-04-04 12:58] LABS: Appearance, Urine Hazy (Clear); Bilirubin, Urine Neg (Neg); Blood, Urine 1+ (Neg); Color, Urine Yellow (P-Yellow); Glucose Qualitative, Urine Neg (Neg); Ketones, Urine Neg (Neg); Leukocyte Esterase, Urine 2+ (Neg); Nitrite, Urine Neg (Neg); Protein, Urine 2+ (Neg); Specific Gravity, Urine 1.015 (1.003-1.022); Urobilinogen, Urine NORM (Normal)
[2021-04-04 13:09] LABS: Red Blood Cells, Urine 0-2 /hpf (0-2)
[2021-04-04 13:10] LABS: Bacteria Rare /hpf; Squamous Epithelial Cells Few /hpf (Few)
--- NOTE | 2021-04-04 18:34 | NUR ---
ADMISSION/SHIFT SUMMARY: PT NEW ADMIT, RECEIVED FROM ER AT APPROX 1400. PT ARRIVES ALERT, ORIENTED TO SELF, LOCATION, AND PRESIDENT BUT THINKS THE YEAR IS 2003. PT ARRIVES ON O2 VIA NC AT 4L/MIN, MAINTAINING O2 SATS 90-94%. SR W/PAC ON MONITOR. INDWELLING ROSARIO PATENT, DRAINING TO GRAVITY. UPON ARRIVAL TO ROOM, PT FOUND TO BE INCONTINENT OF SOFT STOOL, PT CLEANED AND ATTENS PLACED. DR FANG HAS BEEN CONSULTED WITH MOST RECENT ORDERS FOR REPEAT K+ LAB DRAW AND REQUEST TO CALL HIM WITH RESULTS AT 2100. T/OUT THE EVENING, PT WOB HAS NOT IMPROVED AND PT BECOMES MORE RESTLESS. RESP THERAPY CONTACTED, PT PLACED BACK ON BIPAP W/CURRENT SETTINGS 10/5, BACKUP 12, 35% FIO2. WILL CONTINUE TO MONITOR AND TREAT ACCORDINGLY UNTIL CHANGE OF SHIFT.
--- NOTE | 2021-04-04 22:40 | NUR ---
CALLED DR JANETTE FANG REGARDING PT'S POTASSIUM AND OTHER LABS. ORDER GIVEN FOR ONE AMP OF BICARB IV; 2MG OF BUMEX X1 IV. ORDERS ENTERED INSTRUCTED.
[2021-04-05 04:54] LABS: BASOPHILS ABSOLUTE AUTO 0.01 K/mm3 (0.00-0.23); BASOPHILS PERCENT AUTO 0 % (0-2); EOSINOPHILS PERCENT AUTO 0 % (0-6); Hematocrit 24.6 % (37.0-53.0); Hemoglobin 7.6 g/dL (13.5-17.5); IMMATURE GRAN ABSOLUTE AUTO 0.04 K/mm3 (0.00-0.10); IMMATURE GRAN PERCENT AUTO 0 % (0-1); LYMPHOCYTES ABSOLUTE AUTO 0.29 K/mm3 (0.84-5.20); LYMPHOCYTES PERCENT AUTO 3 % (21-46); MONOCYTES ABSOLUTE AUTO 0.71 K/mm3 (0.16-1.47); MONOCYTES PERCENT AUTO 6 % (4-13); Mean Corpuscular HGB 24.4 pg (26.0-34.0); Mean Corpuscular HGB Conc 30.9 g/dL (31.5-36.5); Mean Corpuscular Volume 79 fL (80-100); Mean Platelet Volume 9.9 fL (9.1-12.4); NEUTROPHILS ABSOLUTE AUTO 10.76 K/mm3 (1.96-9.15); NEUTROPHILS PERCENT AUTO 91 % (41-73); Platelet Count 245 K/mm3 (150-400); RDW Coefficient Variation 18.5 % (11.7-14.2); RDW Standard Deviation 52.1 fL (35.1-46.3); Red Blood Cell Count 3.12 M/mm3 (4.30-5.90); White Blood Cell Count 11.81 K/mm3 (4.00-11.30)
[2021-04-05 05:26] LABS: Albumin, Blood 2.5 g/dL (3.4-5.0); Albumin/Globulin Ratio 0.5 (0.8-1.8); Bilirubin, Total 0.4 mg/dL (0.1-1.0); Bun/Creatinine Ratio 38.4 (12.0-20.0); Creatinine, Blood 3.05 mg/dL (0.60-1.20); Globulin, Blood 4.7 g/dL (2.2-4.0); Magnesium, Blood 2.5 mg/dL (1.6-2.4); Phosphorus, Blood 5.9 mg/dL (2.5-4.9); Potassium, Blood 5.1 mmol/L (3.5-5.5); Total Protein, Blood 7.2 g/dL (6.4-8.2)
--- NOTE | 2021-04-05 06:12 | NUR ---
SHIFT SUMMARY PT IS CONFUSED HAS BEEN LETHARGIC MOST OF THE NIGHT WHEN HE WAKES UP HE YELLS AND RIPS OFF BIPAP MASK. PT IS ON BIPAP OF 10/5 35%, HAS ALSO BEEN PUT ON 15L OYXMIZER FOR BREAKS BUT CAN ONLY TOLERATE FOR A SHORT TIME BEFORE DESATING INTO MID 80'S. PT'S NBP AND HEART RATE HAVE BEEN STABLE. PT HAS BEEN MEDICATED PER ORDER AND K HAS DECREASED IN THIS MORNING LABS. ROSARIO IS DRAINING TO GRAVITY AND HE HAS AN ATTENDS IN PLACE DUE TO SEVERAL LOOSE STOOLS T/O THE NIGHT. CALL LIGHT IS WITHIN REACH AND BED ALARM IS ACTIVATED.
--- NOTE | 2021-04-05 14:10 | NUR ---
UPDATE PHYSICIAN NOTIFIED OF PT CON INCREASE IN AGGITION AND ANXIETY. NEW ORDERS FOR ATIVAN, SEE EMAR. PT CONT TO PULL AT IV LINES AND REMOVE OXYGEN. ORDERS FROM PHYSICIAN FOR SOFT BILATERAL WRIST RESTRAINTS ORDERED AT THIS TIME FOR PT SAFETY.
--- NOTE | 2021-04-05 15:10 | NUR ---
PHYSICIAN NOTIFIED PHYSICIAN INFORMED OF NO REPREAT TROPONINS AT THIS TIME. PHYSICIAN STATED ORDERS TO BE PLACED.
--- NOTE | 2021-04-05 16:22 | NUR ---
UPDATE D/T PT HAVING INCREASE IN AGGITATION AND NEED RESTRAINTS WHILE ON BIPAP THE PT IS NOW ICU STATUS. VICE PRESIDENT [employer] NOTIFIED NURSING KNITTING MACHINE OPERATOR. PT TO BE TRANSFERRED TO ICU 01. REPORT GIVEN TO ICU 01 RN. PT'S EX UPDATED BY PALLIATIVE CARE ON PT TRANSFER AT THIS TIME. PT BROUGHT BY BED WITH CHART.
--- NOTE | 2021-04-05 16:30 | NUR ---
75 year old male admitted to the hospital for Acute On Chronic Kidney Injury. Pt's medical history and comorbidities include: Morbid Obesity, CAD, PAD, CKD3, Diastolic CHF, DM2, Aortic Valve Replacement, HTN, Osteoarthritis, GERD, COPD, BPH, Peripheral Neuropathy, Hyperlipidemia, and Iron Defficiency Anemia. Pt has had multiple hospitalizations and ED visits in the last 6 months. Spoke with Pt's Primary RN María and discussed case. Pt has been confused, anxious, and agitated. Pt has been tearing off his BIPAP mask and is currently in soft wrist restraints. Pt is resting in bed with his eyes closed. Pt appears comfortable with no S/S of distress at this time. Called and spoke with Pt's ex Paty who is also Pt's healthcare decision maker on Pt's advanced directive. Provided update and offered therapeutic listening. Paty states she is 80 years old and is starting to struggle with careing for Pt. Pt's care needs have significantly increased. Pt is chair and bed bound, is incontinent of bowel and bladder, experiences significant confusion with occasional hallucinations, needs assistance with bathing and dressing. She reports Pt's home health nurse has discussed considering hospice. Continued therapeutic listening. Re-enforced the importance of planning for the future and the importance of considering hospice as his illnesses progress. Paty reports plan to discuss further with Pt's daughter who is Pt's alternate healthcare decision maker. Paty expresses appreciation and reports no other concerns at this time. PPS 40% ADLs 5/6 Pt high risk for readmission Palliative Care will remain available
--- NOTE | 2021-04-05 16:53 | NUR ---
TRANSFER TO ICU/SHIFT CHANGE REPORT FROM [facility]. PT ARRIVES IN ICU AT 1623. 15L VIA OXYMIZER. PT INCOHERANT. OCCASIONALLY DIRECTABLE. PULLING ON RESTRAINTS. ASKING FOR WATER. TACHYPENIC, LABORED RR. LUNGS c CRACKLES IN BASES. IVF PLACED ON STANDBY. MUCUS MEMBRANES DRY. BP STABLE. HR 100'S, WIDE QRS. ABD OBESE, SOFT, NON TENDER. BT X 4. ROSARIO PATENT, DRAINING CLEAR YELLOW URINE TO GRAVITY. SKIN FRAGILE. MEPILEX TO COCCXY, DRESSING TO LLE. WOUND CONSULT ORDERED. POWERGLIDE TO RUE. RESTRAINTS TO PROTECT LINES AND TUBES. WILL CONTINUE TO MONITOR.
--- NOTE | 2021-04-05 18:02 | NUR ---
BELONGINGS WHEN CARE WAS ASSUMED THERE WAS TWO PATIENT BELONGING BAGS AND PURSE IN ROOM. LEA AND OLGA TOOK BAGS, PURSE AND PHONE HOME MID DAY. I NOTICE THE PATIENT HAD A GOLD BAND WEDDING RING ON. MONE TATE AND CECELIA WERE ALL IN ROOM AT DIFFERENT TIMES c PATIENT. LEA NOTIFIED CHARGE NURSE AFTER TOD THAT THE WEDDING RING WAS MISSING. ENCOURAGED HIM TO ASK CECELIA OR OLGA IF THEY REMOVED IT FOR SAFE KEEPING. OLGA STATES SHE DID NOT REMOVE IT AND ALSO STATED THAT THERE WERE OTHER THINGS MISSING BUT WE WOULD NEED TO SPEAK cortes TATE REGARDING THAT. CHARGE NURSE, NURSING TRACK INSPECTOR AND CLINICAL COORDINATOR NOTIFIED.
[2021-04-05 18:17] LABS: International Normalized Ratio 1.36
--- NOTE | 2021-04-05 19:00 | NUR ---
[facility] PATIENT ON BIPAB ST NOTED IN THE MONITOR WILL TO CONTINUE TO MONITOR,
[2021-04-05 19:40] LABS: Bun/Creatinine Ratio 39.4 (12.0-20.0); Calcium, Blood 9.4 mg/dL (8.5-10.1); Creatinine, Blood 2.51 mg/dL (0.60-1.20); Magnesium, Blood 2.6 mg/dL (1.6-2.4); Potassium, Blood 4.9 mmol/L (3.5-5.5)
--- NOTE | 2021-04-05 20:39 | NUR ---
1899 NITRO DRIP DID NOT STARTED 1904 MD PATRICK MADE AWARE 1904 BP 118/61 1919 MORPHINE ORDERED 1924 PATIENT APPEAR ON CALM AND RELAX WILL TO CONTINUE TO MONITOR.
[2021-04-06 01:20] LABS: Hematocrit 26.8 % (37.0-53.0); Hemoglobin 8.2 g/dL (13.5-17.5)
[2021-04-06 01:39] LABS: Magnesium, Blood 2.2 mg/dL (1.6-2.4)
[2021-04-06 01:42] LABS: Albumin, Blood 2.5 g/dL (3.4-5.0); Anion Gap 8 mmol/L (6-16); Blood Urea Nitrogen 105 mg/dL (8-24); Bun/Creatinine Ratio 42.7 (12.0-20.0); CO2, Blood 28 mmol/L (21-32); Calcium, Blood 9.6 mg/dL (8.5-10.1); Chloride, Blood 108 mmol/L (98-108); Creatinine, Blood 2.46 mg/dL (0.60-1.20); Glomerular Filtration Rate 26 (60-); Glucose, Blood 219 mg/dL (70-99); Phosphorus, Blood 5.1 mg/dL (2.5-4.9); Potassium, Blood 4.3 mmol/L (3.5-5.5); Sodium, Blood 144 mmol/L (136-145)
--- NOTE | 2021-04-06 07:25 | NUR ---
DR. CAPPS HERE TO SEE PATIENT. INFORMED OF INCREASING TROPONIN OF 2.5 AND THAT PATIENT RECEIVED PRN MORPHINE FOR COMPLAINTS OF CHEST PAIN DURING NIGHT. NO ORDERS RECEIVED AT THIS TIME. DOCTOR STATED THAT HE HAS NO PLANS TO TAKE HIM FOR ANGIO AT THIS TIME.
--- NOTE | 2021-04-06 08:39 | NUR ---
DR. RODRIGUEZ IN TO SEE PATIENT THIS AM. INFORMED THAT PATIENT HAD COMPLAINTS OF CHEST PAIN DURING NIGHT. INFORMED THAT PRN MORPHINE GIVEN FOR CHEST PAIN. INFORMED THAT BROTH SETTER RN STATED THEY DID NOT START NITRO DRIP BECAUSE OF SOFT BPS. INFORMED THAT BROTH SETTER RN REPORTED MORPHINE WORKED TO ALLEVIATE CHEST PAIN. INFORMED THAT TROPONIN INCREASED TO 2.5. INFORMED THAT TRANSPORTATION SECURITY SCREENER IN TO SEE PATIEN THIS AM AND STATED THAT HE IS NOT PLANNING ON TAKING PATIENT TO [facility] AT THIS TIME. INFORMED THAT NIGHT RN REPORTED PATIENT TOOK OFF BIPAP AND DESATTED DOWN TO 60S AFTER ONLY A MINUTE. PATIENT WAS THEN PLACED IN RESTRAINTS TO KEEP BIPAP ON. INFORMED THAT PATIENT NPO BECAUSE OF NEED FOR BIPAP. INFORMED THAT PATIENT DOES SEEM AGITATED AND WANTS BIPAP OFF. ORDERS RECEIVED.
--- NOTE | 2021-04-06 11:12 | NUR ---
Spoke with Dr Cuevas prior to Pt visit and discussed case. Pt resting in bed with his eyes closed and is on BIPAP. Spoke with Pt's Primary RN Mari and discussed case. Pt tore BIPAP mask off last night. Slight improvement with kidney function. Pt still experiencing significant confusion. Pt left undisturbed at this time. Called and spoke with Paty and provided update. Answered questions and offered therapeutic listening. Paty reports she and Pt's daughter are leaning towards hospice services when Pt is ready for D/C. Listened as she reports concerns regarding her ability to care for Pt and is considering higher level of care upon D/C. Pt's daughter lives in [place] and has plans to come down this weekend. Paty expresses appreciation and reports no other concerns at this time. Spoke with Radiographer Angiogram Tanvi and relayed Paty's concerns. Palliative Care will remain available.
--- NOTE | 2021-04-06 13:32 | NUR ---
patient trial off the bipap, oxymizer at 8l o2 sats 94%
--- NOTE | 2021-04-06 13:44 | NUR ---
REPORTED TO PATIENTS GEENA SYLVESTER, NO IMPROVEMENTS OR WORSENING, TRIAL OFF BIPAP NOW WITH OXYMIZER AT 8L O2 95%
--- NOTE | 2021-04-06 17:00 | NUR ---
OXYMIZER 14L SATS 85%, BIPAP BACK ON SATS AT 92%
--- NOTE | 2021-04-06 17:07 | NUR ---
DR RODRIGUEZ REPORTED NO MAINTENANCE FLUIDS, NO NUTRITION, PATIENT TO SLEEPY TO TRY TO EAT, DR RODRIGUEZ WILL REVIEW IN AM FOR POSSIBLE TPN, CLINDAMIX AND MAINTENANCE FLUIDS.
--- NOTE | 2021-04-06 18:10 | NUR ---
PATEINT ALERT AND ORIENTED TO SELF ONLY, ANSWERS YES OR NO WITH HIS HEAD, MOANS AND SCREAMS OUT UNRECOGNIZABLE WORDS, LS CLEAR, OXYMIZER AT 8L O2 FOR 30 MINUTES TODAY, BACK ON BIPAP NOW, BUMEX GIVEN, ROSARIO YELLOW TO GRAVITY, WOUND CONSULT TO BUTTOCKS AND SIMRAN SHIMS, PG LEFT AND RIGHT, HEPARIN INFUSING 15, MEDICATED FOR PAIN WITH 2 MG MORPHINE, WILL RELAY TO PM RN
--- NOTE | 2021-04-06 19:00 | NUR ---
[facility], AV BBB NOTED IN THE MONITOR BIPAP 03/01 35 % WILL TO CONTINUE TO MONITOR
[2021-04-07 02:32] LABS: Hematocrit 24.4 % (37.0-53.0); Hemoglobin 7.4 g/dL (13.5-17.5)
[2021-04-07 02:47] LABS: Albumin, Blood 2.3 g/dL (3.4-5.0); Anion Gap 8 mmol/L (6-16); Blood Urea Nitrogen 128 mg/dL (8-24); Bun/Creatinine Ratio 45.6 (12.0-20.0); CO2, Blood 28 mmol/L (21-32); Calcium, Blood 9.3 mg/dL (8.5-10.1); Chloride, Blood 111 mmol/L (98-108); Creatinine, Blood 2.81 mg/dL (0.60-1.20); Glomerular Filtration Rate 22 (60-); Glucose, Blood 252 mg/dL (70-99); Magnesium, Blood 2.7 mg/dL (1.6-2.4); Phosphorus, Blood 4.7 mg/dL (2.5-4.9); Potassium, Blood 4.2 mmol/L (3.5-5.5); Sodium, Blood 147 mmol/L (136-145)
--- NOTE | 2021-04-07 09:28 | NUR ---
DR CAPPS ROUNDED AT 0812, PATIENT TO HAVE PRBC, DR CAPPS TO CALL TO DECIDE IF PATIENT IS GOING FOR A ANGIOGRAM OR NOT. 824 DR MIRELES ROUNDED, ORDERED LOVENOX, SPOKE WITH PALLIATIVE CARE, NAD WILL FOLLOW UP WITH DR CAPPS FOR THE TREATEMNT PLAN
--- NOTE | 2021-04-07 09:30 | NUR ---
DOCTOR UPDATED DR. LAMA IN TO SEE PATIENT THIS AM. INFORMED THAT TROPONIN HAS INCREASED TO 9.18. INFORMED THAT HEMOGLOBIN 7.4. INFORMED THAT PATIENT CANNOT TAKE AM CARDIAC MEDS BECAUSE IS NOT AWAKE OR ORIENTED ENOUGH TO SWALLOW SAFELY. CONFIRMED THAT HE WANTED HEPARIN DRIP DC'D. INFORMED THAT KIDNEY LABS WORSENING BUT THAT PATIENT DID HAVE 700 MLS OF URINE OUTPUT ON VERTICA ARCHITECT. STATED HE WOULD CALL CAREGIVER/ EX AND SPEAK ABOUT PLAN OF CARE. DR. HENRIQUEZ ALSO STOPPED BY TO SEE PATIENT. INFORMED OF NURSE CONVERSATION WITH SEASONING MIXER. INFORMED THAT KIDNEY LABS WORSENING AND PATIENT HAD 700 MLS URINE OUT ON VERTICA ARCHITECT. INFORMED THAT PATIENT UNABLE TO TAKE PO MEDICATIONS AND THAT HE IS NOT GETTING ANY FLUIDS OR NUTRITION AT THIS TIME. INFORMED THAT HEMOGOBIN 7.4. INFORMED THAT TROPONIN CONTINUES TO RISE. INFORMED THAT SEASONING MIXER DC'D HEPARIN DRIP AND INQUIRED ABOUT DVT PROPHYLAXIS. ORDER FOR SQ LOVENOX OBTAINED. NO OTHER ORDERS RECEIVED AT THIS TIME. DR. HENRIQUEZ STATED THAT SHE WOULD SPEAK WITH PALLIATIVE CARE NURSE ABOUT PLAN OF CARE.
--- NOTE | 2021-04-07 09:56 | NUR ---
NUZHAT/NO SYLVESTER CALLED, REPORTED HIGINIO CARE WISHES TO DR RICHARD CRANDALL CALL HIGINIO, FAMILY AGREES TO HOSPICE COMFORT CARE BUT CAN NOT PROVIDE THAT CARE AT HOME, REPORTED TO PALLIATIVE CARE NURSE
--- NOTE | 2021-04-07 10:51 | NUR ---
Received a phone call from Dr. Ricarod that she had just spoken to pt's ex-, Paty, who is pt's POA. Dr. Ricardo states Paty has decided to transition pt to comfort care at this time. Paty does not want Marquise to suffer. She is unable to take him home and care for him at this time. Comfort care orders placed per Dr. Ricardo's request. Spoke with Yanira Warren CM RN, to give an update on new comfort care orders and possible placement. Visited ICU. Pt currently resting with bipap on. Nursing updated. PC to continue to follow for symptom management and family support prn.
--- NOTE | 2021-04-07 14:10 | NUR ---
PATIENT STANFORDSatya HIGINIO XWIFE/CAREGIVER CONTACTED, YUNIOR MADE COMFORTCARE, BIPAP DISCONTINUED, RESTRAINTS REMOVED, HIGINIO STATED UNDERSTANDING THAT IT IS UNKNOWN IF PATIENT WILL WITH IN AN HOUR OR THREE DAYS ONCE OFF THE BIPAP, PATIENT NOT MOANING AND SCREAMING OUT NOW, RESTRAINTS OFF, BIPAP OFF, REFUSED TO WEAR NC, BED ALARM ON,WCTM
--- NOTE | 2021-04-07 16:15 | NUR ---
COMFORT CARE, WASHED FACE, LEFT PUPIL FIXED 4-5, RIGHT PUPIL SLUGGISH 3, PATIENT GRABBING AND PUSHING STAFF AWAY, PATIENT PULLED GOWN OFF, SHEET COVERING PATIENT
--- NOTE | 2021-04-07 17:25 | NUR ---
PATIENT CONFUSED, NOT AGGRESSIVE, LESS RESTLESS, TACHYPNEA, MEDICATED WITH ZIYAD 10 MG, SATS RA 80-85%, DOES NOT FOLLOW DIRECTIONS, REPOSITIONED, COMFORT CARE, PILLOW AND A SHEET FOR PATIENT, CONITNUES TO RIP CLOTHES OFF, WASH CLOTH TO FACE AND TRUNK, BED ALARM ON, WILL RELAY TO PM RN
--- NOTE | 2021-04-07 19:00 | NUR ---
PATIENT REPORT RECEIVED FROM [facility] CONFORT CARE PROVIDE TO THE PATIENT AAOX1 ROOM AIR AV BBB NOTED IN THE MONITOR WILL TO CONTINUE TO MONITOR
--- NOTE | 2021-04-07 20:21 | NUR ---
ORAL SUCTION PROVIDED, PAIN MEDICATION OFERED AND ADMINISTERED
--- NOTE | 2021-04-07 22:41 | NUR ---
PATIENT APPEAR ON CALM
--- NOTE | 2021-04-08 06:11 | NUR ---
PATIENT ROUNDING, PATIENT APPEAR ON CALM WILL TO CONTINUE TO MONITOR
--- NOTE | 2021-04-08 08:10 | NUR ---
ASSUMED PT CARE THIS AM. PT WITH EYES CLOSED, MUMBLES OCCASSIONALLY, NOT ABLE TO ANSWER QUESTIONS OR FOLLOW SIMPLE COMMANDS. PT MEDICATED WITH ROXANOL GTTS SECONDARY TO DYSPNEA AND GRIMACING, APPEARS COMFORTABLE AFTER MEDICATION. PT REPOSITIONED FOR COMFORT. ORAL CARE PROVIDED.
--- NOTE | 2021-04-08 10:01 | NUR ---
PT BATHED, LINENS CHANGED. PT GIVEN ROXANOL GTTS FOR DYSPNEA AND GROANING WITH MOVEMENT. PT NOW APPEARS COMFORTABLE. PT'S FAMILY STATES THEY WILL BE BY IN A COUPLE HOURS TO SAY THEIR GOODBYES TO PT.
--- NOTE | 2021-04-08 11:39 | NUR ---
FAMILY AT BEDSIDE. PT REPOSITIONED, GIVEN ROXANOL FOR DYSPNEA AND GRIMACIMG. FAMILY ASKING QUESTIONS ABOUT POST-MORTEM PROCESS. PALLIATIVE CARE CALLED, STATES THEY WILL BE BY SHORTLY TO SPEAK WITH FAMILY AND HELP ANSWER QUESTIONS.
--- NOTE | 2021-04-08 17:29 | NUR ---
SHIFT SUMMARY PT ON COMFORT CARE. PT MOANS, GROANS, AND MOVES BUE TO TACTILE STIMULI, OTHERWISE RESTING. ROXANOL GIVEN APPROX Q 2 HRS FOR DYSPNEA AND SX OF PAIN AEB GRIMACING. PT REPOSITIONED Q 2, ORAL CARE PROVIDED PRN. PT'S AND DTR AT BEDSIDE THIS AFTERNOON, UPDATED BY PALLIATIVE CARE. THEY STATE THEY WOULD LIKE TO BE CALLED WHEN PT PASSES. PT HR CONSISTENTLY 90S, ACCELERATED JUNCTIONAL WITH BBB; RESP 30-35 SHALLOW WITH APNEIC PAUSES. 350 FC.
--- NOTE | 2021-04-08 19:23 | NUR ---
PATIENT REPORT RECEIVED FROM [facility] PATIENT AAOX2 BIPAP 05/02 30% NSR NOTED IN THE MONITOR WILL TO CONTINUE TO MONITOR
--- NOTE | 2021-04-08 20:01 | NUR ---
PATIENT REPORT RECEIVED FROM [facility] RELAX CONFORT CARE CONTINUE
--- NOTE | 2021-04-08 20:50 | NUR ---
patient arrived from ICU 1 to room 309 at 2039. breathing apneac and labored. Roxynol 10mg fgib=kaitlyn at 2049 for comfort and air hunger. will continue close monitorinh
--- NOTE | 2021-04-08 21:00 | NUR ---
PATIENT REPORT GIVEN TO [facility] PATIENT APPEAR ON CALM
--- NOTE | 2021-04-08 22:18 | NUR ---
Patient peacefully at 2210. This RN present in room. green pipefitter notified. Will contact daughter to inform
== END 2021-04-08 22:10 ==
LOC: ER 06:05 → PCU 09:13 → ICUE 09:13 → ERHOLD 09:13 → EOR 09:13 → ER 09:13 → PCU 13:55 → ICUE 04-05 16:00 → MEDS 04-08 20:38
PROVIDERS: Emergency Medicine; Internal Medicine Nephrology; Nurse Practitioner Acute Care; Pharmacist; ADMIT Internal Medicine
PROC: 5A09457 Assistance with Respiratory Ventilation, 24-96 Consecutive Hours, Continuous Positive Airway Pressure (ICD-10-PCS; principal; 2021-04-04)
PROC: 30233N1 Transfusion of Nonautologous Red Blood Cells into Peripheral Vein, Percutaneous Approach (ICD-10-PCS; 2021-04-04)
DX: I13.0 Hypertensive heart and chronic kidney disease with heart failure and stage 1 through stage 4 chronic kidney disease, or unspecified chronic kidney disease (principal); I21.4 Non-ST elevation (NSTEMI) myocardial infarction; I50.33 Acute on chronic diastolic (congestive) heart failure; G92.8 Other toxic encephalopathy; J96.21 Acute and chronic respiratory failure with hypoxia; J96.22 Acute and chronic respiratory failure with hypercapnia; N17.9 Acute kidney failure, unspecified; E87.2 Acidosis; J44.1 Chronic obstructive pulmonary disease with (acute) exacerbation; E66.2 Morbid (severe) obesity with alveolar hypoventilation; E87.0 Hyperosmolality and hypernatremia; G89.29 Other chronic pain; M54.9 Dorsalgia, unspecified; E78.5 Hyperlipidemia, unspecified; Z20.822 Contact with and (suspected) exposure to COVID-19; E87.5 Hyperkalemia; Z51.5 Encounter for palliative care; Z66 Do not resuscitate; M19.90 Unspecified osteoarthritis, unspecified site; K21.9 Gastro-esophageal reflux disease without esophagitis; N40.0 Benign prostatic hyperplasia without lower urinary tract symptoms; I25.10 Atherosclerotic heart disease of native coronary artery without angina pectoris; E11.22 Type 2 diabetes mellitus with diabetic chronic kidney disease; N18.30 Chronic kidney disease, stage 3 unspecified; E11.51 Type 2 diabetes mellitus with diabetic peripheral angiopathy without gangrene; D50.9 Iron deficiency anemia, unspecified; E86.9 Volume depletion, unspecified; E83.41 Hypermagnesemia; D63.1 Anemia in chronic kidney disease; E83.39 Other disorders of phosphorus metabolism; E88.09 Other disorders of plasma-protein metabolism, not elsewhere classified; E11.42 Type 2 diabetes mellitus with diabetic polyneuropathy; Z88.8 Allergy status to other drugs, medicaments and biological substances; I25.2 Old myocardial infarction; Z95.1 Presence of aortocoronary bypass graft; Z98.890 Other specified postprocedural states; Z95.2 Presence of prosthetic heart valve; Z86.010 Personal history of colon polyps; Z68.35 Body mass index [BMI] 35.0-35.9, adult; Z79.01 Long term (current) use of anticoagulants; Z78.1 Physical restraint status
CPT/HCPCS: 0241U; 36415; 36430; 36600; 51702; 71045; 76770; 80048; 80053; 80069; 81001; 82375; 82550; 82803; 82947; 83735; 83880; 84100; 84132; 84484; 85014; 85018; 85025; 85610; 85730; 86850; 86900; 86901; 86923; 87086; 93005; 93010; 94640; 94644; 94660; 94762; 96374; 96375; 96376; 97162; 99285-25; A9270; C1751; C8929; J0610; J0881; J1644; J1650; J1815; J1940; J2060; J2270; J2930; J7030; J7070; P9016; Q9957